=== PATIENT | female | born 1995 | race Two or more races ===

== ENCOUNTER → 2019-10-11 | Outpatient (CLI) | payer OTHER | END | disposition home or self-care (01) | LOC: LAB 10:27 | PROVIDERS: ATTEND Preventive Medicine Preventive Medicine/Occupational Environmental Medicine | DX: Z02.1 Encounter for pre-employment examination (principal) | CPT/HCPCS: 36415; 86706; 86735; 86762; 86765; 86787 ==

== ENCOUNTER → 2020-02-27 | Outpatient (CLI) | payer OTHER | END | disposition home or self-care (01) | LOC: LAB 08:42 | PROVIDERS: ATTEND Nurse Practitioner Family | DX: U07.1 COVID-19 (principal) | CPT/HCPCS: C9803; U0003 ==

== ENCOUNTER 2020-09-06 16:43 | Emergency (ER) | payer MEDICAID, OTHER ==
[~2020-09-06] VITALS: Ht 154.9 cm; Wt 72.6 kg
[2020-09-06 19:01] LABS: Basophils # (auto) 0.1 10 ^3/uL (0-0.2); Basophils % (auto) 0.5 % (0.0-2.0); Eosinophils # (auto) 0 10 ^3/uL (0-0.8); Eosinophils % (auto) 0.4 % (0.0-7.0); Hemoglobin 13.7 g/dL (12.2-16.2); Lymphocytes # (auto) 1.6 10 ^3/uL (0.4-5.4); Lymphocytes % (auto) 14.1 % (10.0-50.0); Mean Corpuscular Hemoglobin 29.3 pg (28.0-32.0); Mean Corpuscular Hgb Conc. 34.2 g/dL (32.0-36.0); Mean Corpuscular Volume 85.7 fL (80.0-100.0); Monocytes # (auto) 0.6 10 ^3/uL (0-1.3); Monocytes % (auto) 5.5 % (0.0-12.0); Neutrophils % (auto) 79.5 % (37.0-80.0); Red Blood Cells 4.67 10^6/uL (4.0-5.20); Red Cell Distribution Width 14.4 % (11.8-14.3); White Blood Cell 11.3 10^3/uL (4.4-10.8)
[2020-09-06 19:17] LABS: Albumin 4.3 g/dL (3.4-5.0); BUN/Creatinine Ratio 14.3; Potassium 3.7 mmol/L (3.5-5.1)
[2020-09-06 19:19] LABS: Bilirubin, Total 0.6 mg/dL (0.2-1.0); Total Protein 8.6 g/dL (6.4-8.2)
[2020-09-06] MEDS ORDERED: ONDANSETRON HCL 4 MG/2 ML VIAL IV ONE (20:15)
[2020-09-06] MEDS ORDERED: SODIUM CHLORIDE 0.9% 1,000 ML IV ONE ×2 (20:15→22:45)
[2020-09-06 21:50] LABS: Lipase 98 U/L (73-393)
[2020-09-06 21:56] LABS: Creatine Kinase IFCC 43 U/L (26-192)
[2020-09-06 22:21] LABS: Urine Amorphous Crystal MOD /hpf (None Seen); Urine Bacteria NONE SEEN /hpf (None Seen); Urine Blood Negative /uL (Negative); Urine Mucus FEW (None Seen); Urine Specific Gravity 1.028 (1.001-1.035); Urine WBC 4 /hpf (0 - 5)
[2020-09-07 03:02] VITALS: BP 114/81
== END 2020-09-07 03:04 | disposition home or self-care (01) ==
LOC: ER 16:43
DX: O21.0 Mild hyperemesis gravidarum (principal); N39.0 Urinary tract infection, site not specified; R42 Dizziness and giddiness; G43.909 Migraine, unspecified, not intractable, without status migrainosus; Z3A.00 Weeks of gestation of pregnancy not specified
CPT/HCPCS: 36415; 76705; 80053; 81001; 82550; 83605; 83690; 84702; 85025; 85049; 96361; 96374; 99285; J2405; J7030

== ENCOUNTER 2020-09-19 12:27 | Emergency (ER) | payer MEDICAID ==
[~2020-09-19] VITALS: Ht 154.9 cm; Wt 68.0 kg
[2020-09-19 13:44] LABS: Basophils # (auto) 0 10 ^3/uL (0-0.2); Basophils % (auto) 0.3 % (0.0-2.0); Eosinophils # (auto) 0 10 ^3/uL (0-0.8); Eosinophils % (auto) 0.3 % (0.0-7.0); Hematocrit 40.5 % (36.0-46.0); Hemoglobin 13.8 g/dL (12.2-16.2); Lymphocytes # (auto) 1.5 10 ^3/uL (0.4-5.4); Lymphocytes % (auto) 17.8 % (10.0-50.0); Mean Corpuscular Hemoglobin 28.9 pg (28.0-32.0); Mean Corpuscular Volume 84.9 fL (80.0-100.0); Monocytes # (auto) 0.6 10 ^3/uL (0-1.3); Monocytes % (auto) 6.9 % (0.0-12.0); Neutrophils # (auto) 6.5 10 ^3/uL (1.6-8.6); Neutrophils % (auto) 74.7 % (37.0-80.0); Nucleated Red Blood Cells % 0.1 %; Red Blood Cells 4.77 10^6/uL (4.0-5.20); Red Cell Distribution Width 14.3 % (11.8-14.3); White Blood Cell 8.7 10^3/uL (4.4-10.8)
[2020-09-19 13:55] LABS: Calcium 9.4 mg/dL (8.5-10.1); Potassium 3.5 mmol/L (3.5-5.1)
[2020-09-19 13:58] LABS: BUN/Creatinine Ratio 9.5
[2020-09-19 14:01] LABS: Bilirubin, Total 0.4 mg/dL (0.2-1.0); Total Protein 7.9 g/dL (6.4-8.2)
[2020-09-19] MEDS ORDERED: ONDANSETRON HCL 4 MG/2 ML VIAL IV ONE (14:15)
[2020-09-19] MEDS ORDERED: SODIUM CHLORIDE 0.9% 1,000 ML IV ONE (14:15)
[2020-09-19 14:18] VITALS: BP 128/98
== END 2020-09-19 16:06 | disposition home or self-care (01) ==
LOC: ER 12:27
DX: O21.0 Mild hyperemesis gravidarum (principal); Z3A.10 10 weeks gestation of pregnancy
CPT/HCPCS: 36415; 76801; 80053; 84702; 85025; 96361; 96374; 99284; J2405; J7030

== ENCOUNTER 2020-09-29 19:29 | Emergency (ER) | payer MEDICAID ==
[~2020-09-29] VITALS: Ht 157.5 cm; Wt 68.0 kg
[2020-09-29] MEDS ORDERED: ONDANSETRON HCL 4 MG/2 ML VIAL IV ONE (19:45)
[2020-09-29] MEDS ORDERED: SODIUM CHLORIDE 0.9% 1,000 ML IV ONE (19:45)
[2020-09-29 19:58] LABS: Basophils # (auto) 0 10 ^3/uL (0-0.2); Basophils % (auto) 0.5 % (0.0-2.0); Eosinophils # (auto) 0 10 ^3/uL (0-0.8); Eosinophils % (auto) 0.2 % (0.0-7.0); Hematocrit 40.1 % (36.0-46.0); Hemoglobin 13.8 g/dL (12.2-16.2); Lymphocytes # (auto) 1.6 10 ^3/uL (0.4-5.4); Lymphocytes % (auto) 18.2 % (10.0-50.0); Mean Corpuscular Hemoglobin 29.3 pg (28.0-32.0); Mean Corpuscular Hgb Conc. 34.4 g/dL (32.0-36.0); Mean Corpuscular Volume 85.3 fL (80.0-100.0); Monocytes # (auto) 0.5 10 ^3/uL (0-1.3); Monocytes % (auto) 5.6 % (0.0-12.0); Neutrophils # (auto) 6.6 10 ^3/uL (1.6-8.6); Neutrophils % (auto) 75.5 % (37.0-80.0); Nucleated Red Blood Cells % 0.1 %; Red Blood Cells 4.71 10^6/uL (4.0-5.20); Red Cell Distribution Width 14.2 % (11.8-14.3); White Blood Cell 8.7 10^3/uL (4.4-10.8)
[2020-09-29 20:19] LABS: Calcium 9.5 mg/dL (8.5-10.1); Potassium 3.7 mmol/L (3.5-5.1)
[2020-09-29 20:21] LABS: Bilirubin, Total 0.4 mg/dL (0.2-1.0); Total Protein 7.9 g/dL (6.4-8.2)
[2020-09-30 00:15] VITALS: BP 121/80
[2020-09-30 00:20] LABS: Urine Bacteria NONE SEEN /hpf (None Seen); Urine Blood Negative /uL (Negative); Urine Mucus FEW (None Seen); Urine Specific Gravity 1.027 (1.001-1.035); Urine WBC 8 /hpf (0 - 5)
== END 2020-09-30 00:33 | disposition home or self-care (01) ==
LOC: ER 19:32
DX: O21.0 Mild hyperemesis gravidarum (principal); Z3A.11 11 weeks gestation of pregnancy
CPT/HCPCS: 36415; 80053; 81001; 84702; 85025; 96361; 96374; 99283; J2405; J7030

== ENCOUNTER 2020-12-08 11:29 | Emergency (ER) | payer MEDICAID ==
[~2020-12-08] VITALS: Ht 154.9 cm; Wt 65.3 kg
[2020-12-08 11:43] VITALS: BP 138/87
== END 2020-12-08 12:23 | disposition home or self-care (01) ==
LOC: EEVIPCON 11:29 → ER 11:29
DX: H61.22 Impacted cerumen, left ear (principal)
CPT/HCPCS: 69209

== ENCOUNTER 2024-02-15 19:37 | Emergency (ER) | payer MEDICAID ==
[~2024-02-15] VITALS: Ht 167.6 cm; Wt 76.9 kg
[2024-02-15 19:55] VITALS: BP 124/94; PULSE 109; RESP 18
--- NOTE | 2024-02-15 20:24 | ED.PDOC ---
SOB-HPI HPI Comments This is a 28-year-old female presents to the ED chief complaint flu-like s ymptoms x1 day. Patient reports recent exposure to coworkers positive with COVID-19. She states over the past 24 hours she has developed fevers, headache, lost of taste and smell. She states has been taking [id number] Tylenol or Motrin as needed with relief. She denies difficulty breathing, shortness of breath, nausea, vomiting, abdominal pain, or diarrhea. Chief Complaint: Flu like Time Seen by MD: 19:52 Reviewed notes: Nurses Notes, Medications, Allergies Information Source: Patient Mode of Arrival: Ambulatory Past Medical History PAST MEDICAL HISTORY: Denies Surgical History: Denies all surgeries CLINIC ADMINISTRATOR History: No Pertinent CLINIC ADMINISTRATOR History Family History Family History: Reviewed,noncontributory to illness Social History Smoker: Non-Smoker Alcohol: Denies ETOH Use Drugs: Denies Drug Use Lives In: Home Constitutional: reports: fever; denies: chills, diaphoresis, fatigue, malaise, sweats, weakness, others EENTM: reports: throat pain, others (Lost of taste and smell); denies: blurred vision, double vision, ear bleeding, ear discharge, ear drainage, ear pain, ear ringing, eye pain, eye redness, hearing loss, mouth pain, mouth swelling, nasal discharge, nose bleeding, nose congestion, nose pain, photophobia, tearing, throat swelling, voice changes Respiratory: reports: cough; denies: hemoptysis, orthopnea, SOB at rest, shortness of breath, SOB with excertion, stridor, wheezing, others Cardiovascular: denies: chest pain, dizzy spells, diaphoresis, Dyspnea on exertion, edema, irregular heart beat, left arm pain, lightheadedness, palpitations, PND, syncope, others Gastrointestinal: denies: abdomen distended, abdominal pain, blood streaked bowels, constipated, diarrhea, dysphagia, difficulty swallowing, hematemesis, melena, nausea, poor appetite, poor fluid intake, rectal bleeding, rectal pain, vomiting, others Genitourinary: denies: abnormal vagina bleeding, burning, dyspareunia, dysuria, flank pain, frequency, hematuria, incontinence, pain, , vagina discharge, urgency, others Neurological: denies: dizziness, fainting, headache, left sided numbness, left sided weakness, numbness, paresthesia, pre-existing deficit, right sided numbness, right sided weakness, seizure, speech problems, tingling, tremors, weakness, others Musculoskeletal: denies: back pain, gout, joint pain, joint swelling, muscle pain, muscle stiffness, neck pain, others Integumetry: denies: bruises, change in color, change in hair/nails, dryness, laceration, lesions, lumps, rash, wounds, others Allergic/Immunocompromised: denies: Difficulty Healing, Frequent Infections, Hives, Itching, others Hematologic/Lymphatic: denies: anemia, blood clots, easy bleeding, easy bruising, swollen glands, others Endocrine: denies: excessive hunger, excessive sweating, excessive thirst, excessive urination, flushing, intolerance to cold, intolerance to heat, unexplained weight gain, unexplained weight loss, others Psychiatric: denies: anxiety, bipolar disorder, depression, hopeless, panic disorder, schizophrenia, sleepless, suicidal, others Physical Exam General Appearance: No Apparent Distress, Normal HEENT: Pharyngeal Erythema, TMs Normal Neck: Full Range of Motion, Non-Tender, Normal, Normal Inspection Respiratory: Lungs Clear, No Respiratory Distress, Normal Breath Sounds Cardiovascular: No Edema, No JVD, No Murmur, No Gallop, Normal Peripheral Pulses, Regular Rate/Rhythm Breast Exam: Deferred Gastrointestinal: No Organomegaly, Non Tender, No Pulsatile Mass, Normal Bowel Sounds, Soft Genitalia: Deferred Pelvic: Deferred Rectal: Deferred Extremities: Normal capillary refill, Normal inspection, Normal range of motion, Non-tender, No pedal edema Musculoskeletal : Apperance: Normal Neurologic: Alert, side stapler II-XII nml as Tested, No Motor Deficits, Normal Affect, Normal Mood, No Sensory Deficits Cerebellar Function: Normal Reflexes: Normal Skin: Dry, Normal Color, Warm Lymphatic: No Adenopathy Was a procedure done? Was a procedure done?: No Differential Dx Differential Diagnosis: Bronchitis, Pneumonia X-Ray, Labs, Meds, VS Vital Signs Date Time Temp Pulse Resp B/P (MAP) Pulse Ox O2 Delivery O2 Flow Rate FiO2 02/15/24 19:55 100.0 109 18 124/94 (104) 98 Lab Test 02/15/24 19:56 Range/Units Influenza Type A Antigen Positive Negative Influenza Type B Antigen Negative Negative SARS-CoV-2 Antigen (Rapid) Negative NEGATIVE X-Ray, Labs, Meds, VS Comment Patient given ibuprofen 800 mg for low-grade fever. COVID swab negative Influenza a positive Positive influenza a trial Tamiflu times daily x5 days. Advised to rest increase p.o. fluids with electrolytes [id number] Tylenol or Motrin as needed for pain or fever. Follow up PCP in 2-3 days as necessary. ER return precautions given patient indicated understanding agrees with discharge plan of care. Time of 1ST Reevaluation: 21:06 Reevaluation 1ST: Improved Patient Education/Counseling: Diagnosis, Treatment, Prognosis, Need For Follow Up Family Education/Counseling: Diagnosis, Treatment, Prognosis, Need For Follow Up Departure 1 Departure Time of Disposition: 21:06 Impression: Primary Impression: Influenza A Disposition: 01 HOME / SELF CARE / HOMELESS Condition: Stable e-Prescriptions Oseltamivir Phosphate (Tamiflu) 75 Mg Cap 1 CAP PO BID for 5 Days, #10 CAP Prov: GRACE BARNEY 02/15/24 Discharged With: Spouse Critical Care Note Critical Care Time?: No Stability Stability form required: No Heart Score Heart Score: Heart Score Response (Comments) Value History N/A 0 EKG N/A 0 Age <45 0 Risk Factors N/A 0 Troponin N/A 0 Total 0 GRACE BARNEY Feb 15, 2024 20:24
[2024-02-15 20:58] LABS: Rapid Influenza B Negative (Negative)
[2024-02-15 20:59] LABS: COVID19 ANTIGEN SOFIA FIA NEGATIVE (NEGATIVE); Rapid Influenza A Positive (Negative)
[2024-02-15] MEDS ORDERED: OSEL75CA5 PO (21:09)
[2024-02-15] MEDS: IBUPROFEN 800 MG TAB PO ONE (21:13)
[2024-02-15] MEDS ORDERED: LOSA-533 PO (21:14)
[2024-02-15 22:13] VITALS: O2SAT 98
== END 2024-02-15 22:22 | disposition home or self-care (01) ==
LOC: EEVIPCON 19:37 → ER 19:37
DX: J10.1 Influenza due to other identified influenza virus with other respiratory manifestations (principal); Z20.822 Contact with and (suspected) exposure to COVID-19
CPT/HCPCS: 36415; 87426; 87804

== ENCOUNTER 2024-07-23 00:53 | Inpatient (IN) | payer MEDICAID ==
[~2024-07-23] VITALS: Ht 170.2 cm; Wt 8.0 kg
[2024-07-23] MEDS: IOHEXOL 300 MG/ML 100ML BOTTLE IJ ONE (01:13)
--- NOTE | 2024-07-23 01:26 | ED.PDOC ---
History of Present Illness HPI Comments 28 y/o F presents with 3x day history of left-upper and lower quadrant abdominal pain, with associated nausea and vomiting. Patient endorses on pain beginning gradually and unprovoked. She states on pain starting in her LUQ and radiating to her LLQ and describes her vomitus as watery-brown in appearance. She states on no relief or improvement with [id number] Ibuprofen or Tylenol use. Patient endorses on current -control implant in her left-arm and having no other significant past medical, surgical, or social history. She denies any recent travel, injuries, or known sick contact,spoiled food indigestion or substance exposure. Patient denies having any bloody vomitus, diarrhea, constipation, urinary symptoms, fever, chills, or further associated symptoms. Chief Complaint: Abdominal Pain Time Seen by MD: 01:00 Reviewed Notes: Nurses Notes, Medications, Allergies Allergies: Coded Allergies: No Known Drug Allergy (Verified Allergy, Unknown, 09/06/20) Information Source: Patient Mode of Arrival: Ambulatory Severity: Moderate Timing: Days Duration: Since onset Prehospital treatment: Pain Meds Past Medical History PAST MEDICAL HISTORY: Denies Surgical History (Other): -control implant in her left-arm. [employer] History: No Pertinent [employer] History Family History Family History: Reviewed,noncontributory to illness Social History Smoker: Non-Smoker Alcohol: Denies ETOH Use Drugs: Denies Drug Use Lives In: Home All Other Systems: Reviewed and Negative (Comprehensive systems review obtained and negative except for what is stated in the HPI.) Physical Exam General Appearance: No Apparent Distress, Normal HEENT: Normal ENT Inspection, Pharynx Normal, TMs Normal Neck: Full Range of Motion, Non-Tender, Normal, Normal Inspection Respiratory: Chest Non-Tender, Lungs Clear, No Accessory Muscle Use, No Respiratory Distress, Normal Breath Sounds Cardiovascular: No Edema, No JVD, No Murmur, No Gallop, Normal Peripheral Pulses, Regular Rate/Rhythm Breast Exam: Deferred Gastrointestinal: No Organomegaly, Non Tender, No Pulsatile Mass, Normal Bowel Sounds, Soft Genitalia: Deferred Pelvic: Deferred Rectal: Deferred Extremities: No calf tenderness, Normal capillary refill, Normal inspection, Normal range of motion, Non-tender, No pedal edema Musculoskeletal : Apperance: Normal Neurologic: Alert, realtime court reporter II-XII nml as Tested, No Motor Deficits, Normal Affect, Normal Mood, No Sensory Deficits Cerebellar Function: Normal Reflexes: Normal Skin: Dry, Normal Color, Warm Lymphatic: No Adenopathy Was a procedure done? Was a procedure done?: No Differential Dx Considerations may include: gastritis, gastroenteritis, GERD, PUD, splenic abscess/rupture, cholecystitis, cholelithiasis, nephrolithiasis, cystitis, , among others X-Ray, Labs, Meds, VS Vital Signs Date Time Temp Pulse Resp B/P (MAP) Pulse Ox O2 Delivery O2 Flow Rate FiO2 07/23/24 02:17 99 22 152/99 07/23/24 00:59 98.9 100 18 150/98 (115) 100 98.9 Lab Test 07/23/24 01:42 07/23/24 01:12 Range/Units Urine Color Light-orange Yellow Urine Clarity Clear Clear Urine pH 6.0 5.0-9.0 Urine Specific [facility] 1.047 H 1.001-1.035 Urine Protein 1+ H Negative Urine Ketones 4+ H Negative Urine Blood 3+ H Negative /uL Urine Nitrite Negative Negative Urine Bilirubin Negative Negative Urine Urobilinogen Normal Negative mg/dL Urine Leukocyte Esterase 1+ Negative /uL Urine RBC 16 0 - 4 /hpf Urine Microscopic WBC 26 H 0-5 /HPF Urine Squamous Epithelial Cells Few <5 /hpf Urine Bacteria Few H None Seen /hpf Urine Mucus Few None Seen Urine Glucose Trace Normal mg/dL White Blood Count 14.8 H 4.4-10.8 10^3/uL Red Blood Count 5.09 4.0-5.20 10^6/uL Hemoglobin 14.1 12.2-16.2 g/dL Hematocrit 43.5 36.0-46.0 % Mean Corpuscular Volume 85.4 80.0-100.0 fL Mean Corpuscular Hemoglobin 27.8 L 28.0-32.0 pg Mean Corpuscular Hemoglobin Concent 32.5 32.0-36.0 g/dL Red Cell Distribution Width 13.8 11.8-14.3 % Platelet Count 332 140-450 10^3/uL Mean Platelet Volume 9.3 6.9-10.8 fL Neutrophils (%) (Auto) 83.5 H 37.0-80.0 % Lymphocytes (%) (Auto) 11.5 10.0-50.0 % Monocytes (%) (Auto) 4.7 0.0-12.0 % Eosinophils (%) (Auto) 0.0 0.0-7.0 % Basophils (%) (Auto) 0.3 0.0-2.0 % Neutrophils # (Auto) 12.4 H 1.6-8.6 10 ^3/uL Lymphocytes # (Auto) 1.7 0.4-5.4 10 ^3/uL Monocytes # (Auto) 0.7 0-1.3 10 ^3/uL Eosinophils # (Auto) 0 0-0.8 10 ^3/uL Basophils # (Auto) 0 0-0.2 10 ^3/uL Nucleated Red Blood Cells 0.0 % Sodium Level 136 136-145 mmol/L Potassium Level 3.4 L 3.5-5.1 mmol/L Chloride Level 101 98-107 mmol/L Carbon Dioxide Level 23 20-31 mmol/L Anion Gap 12 5-15 Blood Urea Nitrogen 7 L 9-23 mg/dL Creatinine 0.63 0.550-1.02 mg/dL Glomerular Filtration Rate Calc 125 >90 mL/min BUN/Creatinine Ratio 11.1 10.0-20.0 Serum Glucose 116 H 74-106 mg/dL Calcium Level 9.8 8.7-10.4 mg/dL Current Medications Medications (Trade) Dose Ordered Sig/Roshni Route Start Time Stop Time Status Last Admin Sodium Chloride 1,000 ml @ 1,000 mls/hr Q1H ONCE IV 07/23/24 01:15 07/23/24 02:14 DC 07/23/24 02:15 Ondansetron HCl (Zofran) 4 mg ONCE ONCE IV 07/23/24 01:15 07/23/24 01:16 DC 07/23/24 02:16 Morphine Sulfate 4 mg ONCE ONCE IV 07/23/24 01:15 07/23/24 01:16 DC 07/23/24 02:17 Time of 1ST Reevaluation: 01:30 Reevaluation 1ST: Unchanged Patient Education/Counseling: Diagnosis, Treatment, Need For Follow Up Family Education/Counseling: No Family Present Departure 1 Departure Time of Disposition: 03:12 (Patient presented with abdominal pain that was concerning for possible appendicits, gastritis, cholecystitis, colitis, gastroenteritis, sbo, or orther possible surgical emergency. Data: 1. I ordered and reviewed the result of at least 3 labs including a CBC, BMP, and Urinalysis. 2. I independently interpreted the following tests: CT Abdoment and Pelvis is concerning for acute appendicitis .Risk:This patient has a high risk of morbidity due to further diagnostic testing or treatment and may suffer from an acute abdominal process disorder. Workup reveals concern for acute appendicitis and patient should be admitted for further workup. and possible expert consultation. ) Impression: Primary Impression: Acute appendicitis Qualified Codes: K35.32 - Acute appendicitis with perforation, localized peritonitis, and gangrene, without abscess Additional Impression: Intractable abdominal pain Disposition: ADMITTED INPATIENT Admit to: Med Surg Condition: Guarded Critical Care Note Critical Care Time?: Yes Critical care comment: Intractable abdominal pain Authorized and Performed by: Shelbie Sanchez MD Total critical care time: [id number] minutes Due to a high probability of clinically significant, life threatening deterioration, the patient required my highest level of preparedness to intervene emergently and I personally spent this critical care time directly and personally managing the patient. This critical care time included obtaining a history; examining the patient; pulse oximetry; ordering and review of studies; arranging urgent treatment with development of a management plan; evaluation of patient's response to treatment; frequent reassessment; and, discussions with ot her providers. This critical care time was performed to assess and manage the high probability of imminent, life-threatening deterioration that could result in multi-organ failure. It was exclusive of separately billable procedures and treating other patients and teaching time. Please see my other sections and the rest of the note for further information on patient assessment and treatment. Stability Stability form required: No Heart Score Heart Score: Heart Score Response (Comments) Value History N/A 0 EKG N/A 0 Age N/A 0 Risk Factors N/A 0 Troponin N/A 0 Total 0 I personally scribed for SHELBIE SANCHEZ MD ([email or web address]) on 07/23/24 at 01:26. Electronically submitted by Mateusz Liu ([email or web address]). I personally scribed for SHELBIE SANCHEZ MD ([email or web address]) on 07/23/24 at 01:38. Electronically submitted by Mateusz Liu ([email or web address]). SHELBIE SANCHEZ MD July 23, 2024 01:26
[2024-07-23 01:29] LABS: Basophils # (auto) 0 10 ^3/uL (0-0.2); Basophils % (auto) 0.3 % (0.0-2.0); Eosinophils # (auto) 0 10 ^3/uL (0-0.8); Hematocrit 43.5 % (36.0-46.0); Hemoglobin 14.1 g/dL (12.2-16.2); Lymphocytes # (auto) 1.7 10 ^3/uL (0.4-5.4); Lymphocytes % (auto) 11.5 % (10.0-50.0); Mean Corpuscular Hemoglobin 27.8 pg (28.0-32.0); Mean Corpuscular Hgb Conc. 32.5 g/dL (32.0-36.0); Mean Corpuscular Volume 85.4 fL (80.0-100.0); Monocytes # (auto) 0.7 10 ^3/uL (0-1.3); Monocytes % (auto) 4.7 % (0.0-12.0); Neutrophils # (auto) 12.4 10 ^3/uL (1.6-8.6); Neutrophils % (auto) 83.5 % (37.0-80.0); Platelet Count (auto) 332 10^3/uL (140-450); Red Blood Cells 5.09 10^6/uL (4.0-5.20); Red Cell Distribution Width 13.8 % (11.8-14.3); White Blood Cell 14.8 10^3/uL (4.4-10.8)
[2024-07-23 01:36] LABS: Chloride 101 mmol/L (98-107); Sodium 136 mmol/L (136-145)
[2024-07-23 01:37] LABS: Anion Gap 12 (5-15); Carbon Dioxide 23 mmol/L (20-31)
[2024-07-23 01:38] LABS: Calcium 9.8 mg/dL (8.7-10.4)
[2024-07-23 01:40] LABS: Potassium 3.4 mmol/L (3.5-5.1)
[2024-07-23 01:42] LABS: BUN/Creatinine Ratio 11.1 (10.0-20.0)
[2024-07-23 01:48] LABS: Blood Urea Nitrogen 7 mg/dL (9-23); Glucose 116 mg/dL (74-106)
[2024-07-23 01:56] LABS: Urine Bacteria FEW /hpf (None Seen); Urine Blood 3+ /uL (Negative); Urine Clarity Clear (Clear); Urine Color Light-Orange (Yellow); Urine Mucus FEW (None Seen); Urine Protein, UAD 1+ (Negative); Urine Specific Gravity 1.047 (1.001-1.035); Urine Squamous Epithelial Cell FEW /hpf (<5); Urine Urobilinogen Normal (Negative); Urine WBC 26 /HPF (0-5)
[2024-07-23] MEDS: SODIUM CHLORIDE 0.9% 1,000 ML IV ONE ×2 (02:15→05:16)
[2024-07-23] MEDS: ONDANSETRON HCL 4 MG/2 ML VIAL IV ONE ×2 (02:16→05:03)
[2024-07-23] MEDS: MORPHINE SULFATE 4 MG/ML SYR/VIAL IV ONE ×2 (02:17→05:04)
--- NOTE | 2024-07-23 03:04 | DVH ---
Critical finding: Examination: ABPLIV CLINICAL INDICATION: ;LLQ abdominal pain COMPARISON: None. CONTRAST USED: Intravenous. TECHNIQUE: A post contrast CT study of the abdomen and pelvis is performed. The examination was perf ormed with [address] scan done according to ALARA (As Low as Reasonably Achievable). Mul tiplanar reconstructions were obtained. FINDINGS: CT ABDOMEN: Visualized lower thorax: The evaluation of lung bases demonstrates no focal infiltrates or pleural e ffusion. Liver: The liver is normal in size. The portal venous radicles are normal. There is no intrahepatic b iliary radicle dilatation. Gallbladder: The gallbladder is normal and reveals no intrinsic abnormality. The common bile duct is not dilated. Pancreas: The pancreas is normal in size and shape. No focal lesion is seen within. The peripancreati c fat planes are normal. Spleen: The spleen is normal in size and does not show any focal abnormality. Retroperitoneum: Both adrenal glands are normal in size and morphology. There is no significant retr operitoneal lymphadenopathy. The kidneys are normal in size with no hydronephrosis or renal calculi. Vessels: The aorta, IVC and mesenteric vessels appear unremarkable. Stomach and bowel: The bowel loops are unremarkable. There is no ascites. Skeletal system: The visualized thoracolumbar vertebrae and the pelvic bones are unremarkable. CT PELVIS: Appendix: Fluid-filled, thick-walled (diameter up to approximately 11.5 mm) appendix noted in the ri ght iliac fossa with discontinuity in its wall near its tip and heterogenous density, predominantly h ypodense area/collection of approximate size 1.7 x 1.8 x 2 cm near the tip of appendix, suggestive of acute appendicitis with probable perforation and collection near its tip. Mesenteric fat stranding and few soft tissue density subcentimetric mesenteric lymph nodes in the rig ht iliac fossa. Colon: The ascending, transverse, descending, sigmoid colon and rectum are unremarkable. Urinary bladder: The urinary bladder is unremarkable. Pelvic organs: The uterus is normal for age. Well-defined hypodense cystic lesion of approximate siz e 3.4 x 4.8 x 3.6 cm in the right ovary, suggestive of simple cyst. No evidence of enhancing internal septations or any fat density or calcifications. Follicular cysts noted in the left ovary. No left a dnexal mass. No significant pelvic lymphadenopathy is identified. No abnormal fluid collection is see n. IMPRESSION: 1. Acute appendicitis with probable perforation and collection near its tip. 2. Mesenteric fat stranding and few soft tissue density subcentimetric mesenteric lymph nodes in the right iliac fossa. 3. Simple right ovarian cyst. 4. No abdominal mass. 5. No ascites. 6. No free air. 7. Chronic and/or ancillary findings as described above. Electronically Signed 07/23/2024 03:02 Yuly Marion
[2024-07-23] MEDS: PIPERACILLIN-TAZO 4.5GM 100 ML IV ONE (04:15)
--- NOTE | 2024-07-23 06:00 | DVHHP2 ---
History of Present Illness History of Present Illness Patient is 28 years old female with a past medical history of iron-deficiency anemia on iron pill came with a complaint of abdominal pain. As per patient she has been abdominal pain for last 3 days, started gradually, restarted on the left upper quadrant, then radiating to the left lower quadrant and all over the places, continuous, sharp in nature, 10/10 in severity, aggravated with movement or coughing or bending, relieved with some pain medication. Patient also endorsed nausea and vomited was, no blood. Patient Also reported having diarrhea yesterday 4 times, no blood. Patient did not any fever, any dysuria, chest pain no shortness a breath acute joint pain or swelling. Initial lab workup revealed leukocytosis WBC 14.8, mild hypokalemia with a potassium 3.4, urinalysis revealed leukocyte esterase 1+, WBC 26, bacteria few. CT abdomen revealed - Acute appendicitis with probable perforation and collection near its tip. Mesenteric fat stranding and few soft tissue density subcentimetric mesenteric lymph nodes in the right iliac fossa. Simple right ovarian cyst. Past Medical History Iron-deficiency anemia Past Surgical History None Past Social History Lives with family, denies smoking/alcoholism/drug abuse Review of Systems Review of Systems Allergy- NKDA Patient was seen today at the bedside. Cardiovascular- deny acute chest pain or shortness of breath or cough or palpitation Respiratory denies cough or short of breath or wheezing Musculoskeletal-denies acute joint swelling or tenderness or redness Neurological- denies acute dysarthria, dysphagia, change in vision Psychiatry- denies depression or SI or HI Skin- denies acute rash or purpura Allergies: Coded Allergies: No Known Drug Allergy (Verified Allergy, Unknown, 09/06/20) Medications Current Medications Medications Dose Ordered Sig/Roshni Route Start Time Stop Time Status Last Admin Dose Admin Sodium Chloride 1,000 ml @ 120 mls/hr Q8H20M IV 07/23/24 05:45 Morphine Sulfate 1 mg Q4HP PRN IV 07/23/24 05:45 Ondansetron HCl 4 mg Q6HPRN PRN IV 07/23/24 05:45 Ceftriaxone Sodium 50 ml @ 100 mls/hr DAILY@09 IV 07/24/24 09:00 Metronidazole 100 ml @ 100 mls/hr Q8HR IV 07/23/24 14:00 Pantoprazole Sodium 40 mg DAILY IV 07/23/24 10:00 Exam Vital Signs Vital Signs Date Time Temp Pulse Resp B/P (MAP) Pulse Ox O2 Delivery O2 Flow Rate FiO2 07/23/24 05:04 85 23 128/80 07/23/24 00:59 98.9 100 98.9 Exam General examination- awake, alert, oriented HEENT- PEERLA, no acute nasal discharge Cardiovascular- S1-S2 audible, rate and rhythm regular, no murmur Respiratory- CTAB, no wheeze or rhonchi Gastrointestinal-McBurney's point tenderness positive++, bowel sound+. Nondistended Musculoskeletal-no acute joint swelling or tenderness or redness Lower extremity- no leg edema Neurological- cranial nerves intact, no acute dysarthria or dysphagia Psychiatry- denies depression or SI or HI Skin- no acute rash or purpura Labs/Xrays Labs Test 07/23/24 03:31 07/23/24 02:00 07/23/24 01:42 07/23/24 01:12 Range/Units Lactic Acid Level 1.7 0.4-2.0 mmol/L Urine Color Light-orange Yellow Urine Clarity Clear Clear Urine pH 6.0 5.0-9.0 Urine Specific [place] 1.047 H 1.001-1.035 Urine Protein 1+ H Negative Urine Ketones 4+ H Negative Urine Blood 3+ H Negative /uL Urine Nitrite Negative Negative Urine Bilirubin Negative Negative Urine Urobilinogen Normal Negative mg/dL Urine Leukocyte Esterase 1+ Negative /uL Urine RBC 16 0 - 4 /hpf Urine Microscopic WBC 26 H 0-5 /HPF Urine Squamous Epithelial Cells Few <5 /hpf Urine Bacteria Few H None Seen /hpf Urine Mucus Few None Seen Urine Glucose Trace Normal mg/dL White Blood Count 14.8 H 4.4-10.8 10^3/uL Red Blood Count 5.09 4.0-5.20 10^6/uL Hemoglobin 14.1 12.2-16.2 g/dL Hematocrit 43.5 36.0-46.0 % Mean Corpuscular Volume 85.4 80.0-100.0 fL Mean Corpuscular Hemoglobin 27.8 L 28.0-32.0 pg Mean Corpuscular Hemoglobin Concent 32.5 32.0-36.0 g/dL Red Cell Distribution Width 13.8 11.8-14.3 % Platelet Count 332 140-450 10^3/uL Mean Platelet Volume 9.3 6.9-10.8 fL Neutrophils (%) (Auto) 83.5 H 37.0-80.0 % Lymphocytes (%) (Auto) 11.5 10.0-50.0 % Monocytes (%) (Auto) 4.7 0.0-12.0 % Eosinophils (%) (Auto) 0.0 0.0-7.0 % Basophils (%) (Auto) 0.3 0.0-2.0 % Neutrophils # (Auto) 12.4 H 1.6-8.6 10 ^3/uL Lymphocytes # (Auto) 1.7 0.4-5.4 10 ^3/uL Monocytes # (Auto) 0.7 0-1.3 10 ^3/uL Eosinophils # (Auto) 0 0-0.8 10 ^3/uL Basophils # (Auto) 0 0-0.2 10 ^3/uL Nucleated Red Blood Cells 0.0 % Assessment/Plan Assessment/Plan Assessment and plan-called Dr. Pelletier-[phone], and left a voice message, I also texted him regarding the patient. Later on I called again and talked to Dr. Pelletier and informed him about this patient Acute appendicitis with suspected perforation Intractable nausea and vomiting and abdominal pain likely due to acute appendicitis Sepsis Leukocytosis likely due to appendicitis UTI Iron-deficiency anemia Simple right ovarian cyst Mild hypokalemia WBC 14.8, mild hypokalemia with a potassium 3.4, urinalysis revealed leukocyte esterase 1+, WBC 26, bacteria few. CT abdomen revealed - Acute appendicitis with probable perforation and collection near its tip. Mesenteric fat stranding and few soft tissue density subcentimetric mesenteric lymph nodes in the right iliac fossa. Simple right ovarian cyst. Plan NPO Ordered surgery consult Ordered ceftriaxone and metronidazole Ordered IV normal saline Ordered pantoprazole Ordered blood culture, urine culture Ordered EKG, PT INR, PT APTT, Goals of care, Code status ; discussed with >15 minutes PUD prophylaxis: Pantoprazole DVT prophylaxis: SCD Plan discussed with Dr. Wolf , nursing staff, Total time spent on patient evaluation, chart review, assessment and plan, discussion discussion >35 minutes Plan discussed with: Patient, Spouse, Other (RN) My Orders Orders - QUENTIN HOLLAND RESIDENT Procedure Category Date Status Time Admit ADMIT 07/23/24 Transmitted 05:35 Code Status CODE 07/23/24 Transmitted 05:35 Sodium Chloride 0.9% PHA 07/23/24 In Process 05:45 Complete Blood Count LAB 07/24/24 Verified 04:00 Comprehensive LAB 07/24/24 Verified Metabolic Panel 04:00 Npo (Nothing By DIET 07/23/24 Transmitted Mouth) Diet Breakfast Notify Of Changes DARREN 07/23/24 In Process From Base 05:35 Buyer Intern For DARREN 07/23/24 In Process 24 Hours 05:35 Morphine Sulfate PHA 07/23/24 In Process Injection 05:45 Ondansetron Hcl PHA 07/23/24 In Process (Zofran) 05:45 Ceftriaxone 1gm/50ml PHA 07/23/24 In Process D5w (Rocephin) 05:45 Metronidazole PHA 07/23/24 In Process 500mg/100ml (Flagyl 14:00 Metronidazole PHA 07/23/24 In Process 500mg/100ml (Flagyl 05:45 Pantoprazole PHA 07/23/24 In Process (Protonix) 10:00 Prothrombin Time W/ LAB 07/23/24 In Process INR 05:38 PTPTT LAB 07/23/24 In Process 05:38 Chest Xray 1 View XY 07/23/24 Logged 05:41 Beta Hcg, Quantitative LAB 07/23/24 In Process 05:41 Comprehensive LAB 07/23/24 In Process Metabolic Panel 05:41 Potassium Chl PHA 07/23/24 In Process 20meq/100ml 05:45 Ceftriaxone 1gm/50ml PHA 07/24/24 In Process D5w (Rocephin) 09:00 Urine Bacterial JOHN 07/23/24 In Process Culture 05:47 Date of Service: July 23, 2024 Billing Provider: FABIOLA WOLF MD Common Visit Codes: 32311-QEOVIRE INP/OBS CARE (HIGH) Secondary Visit Codes: 88640-BULAHWYG CARE PLAN 30 MINUTES QUENTIN HOLLAND RESIDENT July 23, 2024 06:00
--- NOTE | 2024-07-23 06:13 | DVH ---
EXAM: XR Chest, 1 View CLINICAL INDICATION: Rule out perforation of hollow viscus TECHNIQUE: Frontal view of the chest. COMPARISON: None FINDINGS: LUNGS AND PLEURAL SPACES: Unremarkable. No consolidation. No pneumothorax. HEART: Unremarkable. No cardiomegaly. MEDIASTINUM: Unremarkable. Normal mediastinal contour. BONES/JOINTS: Unremarkable. No acute fracture. OTHER FINDINGS: . IMPRESSION: No acute cardiopulmonary process.
[2024-07-23 06:30] LABS: Alkaline Phosphatase 83 U/L (46-116); Total Protein 8.3 g/dL (5.7-8.2)
[2024-07-23 06:31] LABS: Alanine Aminotransferase 10 U/L (7-40); Albumin 5.4 g/dL (3.2-4.8); Aspartate Aminotransferase < 8 U/L (13-40); Bilirubin, Total 0.6 mg/dL (0.2-1.0)
[2024-07-23 06:36] LABS: INR 0.97 (0.9-1.15); Partial Thromboplastin Time 34.8 SEC (24.5-34.5); Prothrombin Time 10.3 sec (9.3-11.8)
[2024-07-23] MEDS: SODIUM CHLORIDE 0.9% 1,000 ML IV SCH (06:50)
[2024-07-23] MEDS: cefTRIAXone 1GM/50ML D5W 50 ML IV ONE (06:59)
[2024-07-23] MEDS: PANTOPRAZOLE 40 MG/10 ML VIAL INJ IV ONE (07:10)
[2024-07-23] MEDS: MORPHINE SULFATE INJ 2 MG/ml SYRG IV ONE (07:11)
[2024-07-23] MEDS: POTASSIUM CHL 20MEQ/100ML 100 ML IV ONE (07:38)
[2024-07-23] MEDS: metroNIDAZOLE 500MG/100ML 100 ML IV ONE (07:39)
--- NOTE | 2024-07-23 08:23 | DVHPNRES ---
Progress Note Date Seen: July 23, 2024 Resident Creating Document: RENETTA ALCANTARMAURICIO RESIDENT Medical Necessity Reason Pt with a Central, PICC or Fol: No Subjective Review of Systems Patient is a 28-year-old female with no significant past medical history presented to the ED with a chief complaint of abdominal pain associated with nausea. Patient reported the pain started about 3 days ago in the left side of her abdomen in the left lumbar and lower quadrant L spread diffusely across the abdomen and at present complains of tenderness and pain in the right lower quadrant, pain is moderate-severe in intensity, constant with intermittent sharp pain, associated with nausea and few episodes of vomiting, yesterday the patient also reported 4 episodes of loose stools. Denied having any fever, chills, dysuria, increased frequency or nocturia. Past medical history: Anemia Past surgical history: None Gynecological history: 2 normal vaginal deliveries Social history: Patient lives with the family and does not drink alcohol, smoke or use any drugs Home medications none Review of systems Patient seen and examined at the bedside Reported of abdominal pain more in the right lower quadrant [id number] with the associated nausea No vomitings, diarrhea, fever, chills Objective vital signs Vital Sign Date Time Temp Pulse Resp B/P (MAP) Pulse Ox O2 Delivery O2 Flow Rate FiO2 07/23/24 07:33 95 18 129/84 (99) 96 07/23/24 00:59 98.9 98.9 medications Current Medications Medications Dose Ordered Sig/Roshni Route Start Time Stop Time Status Last Admin Dose Admin Sodium Chloride 1,000 ml @ 120 mls/hr Q8H20M IV 07/23/24 05:45 07/23/24 06:50 120 MLS/HR Morphine Sulfate 1 mg Q4HP PRN IV 07/23/24 05:45 Ondansetron HCl 4 mg Q6HPRN PRN IV 07/23/24 05:45 Ceftriaxone Sodium 50 ml @ 100 mls/hr DAILY@09 IV 07/24/24 09:00 Metronidazole 100 ml @ 100 mls/hr Q8HR IV 07/23/24 14:00 Pantoprazole Sodium 40 mg DAILY IV 07/23/24 10:00 Examination Constitutional: Patient is alert and oriented to time, place and person and appears to be in acute distress because of the abdominal pain Gen - no pallor, no icterus, no cyanosis, no clubbing, no LAD, no edema . Skin - Patients skin is warm and dry. HEENT - normocephalic, atraumatic, moist mucous membranes. Neck - full ROM, no LAD, no JVD Pulmonary - B/L equal breath sounds. no crackles , no wheezing, no stridor. cardiovascular - normal S1,S2 heard. no murmurs heard. GI - soft, abdomen with the tenderness to the patient in the right lower quadrant at McBurney's point, positive psoas sign. no hepatospleenomegaly. Bowel sounds normoactive Neurological - Bilateral upper extremity strength 5/5, bilateral lower extremity strength 5/5, no facial droop, normal speech, no tremor, no sensory deficiets. laboratory and microbiology Laboratory Tests 07/23/24 01:12 Test 07/23/24 01:12 Range/Units Serum Glucose 116 H 74-106 mg/dL Problem List/Assessment/Plan Problem List/Assessment/Plan Acute intractable abdominal pain Acute appendicitis with a suspected perforation SIRS likely due to above UTI likely acute cystitis - CT abdomen pelvis with IV contrast showed acute appendicitis with probable perforation and collection near its tip mesenteric fat stranding and diffuse soft tissue density subcentimeter mesenteric lymph nodes in the right iliac fossa, right simple ovarian cyst - surgery consulted - patient underwent laparoscopic appendectomy and evacuation of right lower quadrant abdominopelvic abscess - on IV antibiotics - BIANCA drain with serosanguineous fluid - pain management - IV fluids PUD prophylaxis: Protonix DVT prophylaxis: Enoxaparin Goals of care discussed with the patient for over 29 minutes. Full code Plan discussed with Dr. Grant Plan discussed with: Patient Date of Service: July 23, 2024 Billing Provider: FLOR GRANT MD Common Visit Codes: NOT BILLABLE RAUL ALCANTAR RESIDENT July 23, 2024 08:23 FLOR GRANT MD July 23, 2024 22:42
[2024-07-23] MEDS: MORPHINE SULFATE INJ 2 MG/ml SYRG IV PRN ×2 (08:50→15:15)
[2024-07-23] MEDS: ONDANSETRON HCL 4 MG/2 ML VIAL IV PRN ×2 (08:51→19:27)
[2024-07-23 08:58] LABS: INR 1.01 (0.9-1.15); Partial Thromboplastin Time 32.2 SEC (24.5-34.5); Prothrombin Time 10.7 sec (9.3-11.8)
[2024-07-23] MEDS: BUPIVACAINE 0.5% P/F INJ 10 ML VIAL ONE (08:58)
[2024-07-23] MEDS: LIDOCAINE W/ EPINEPHRINE 1% 20ML VIAL ONE (08:58)
[2024-07-23] MEDS ORDERED: MORPHINE SULFATE INJ 2 MG/ml SYRG IV ONE (09:00)
[2024-07-23] MEDS ORDERED: fentaNYL CITRATE 100 MCG/2 ML VL ONE (09:31)
[2024-07-23] MEDS ORDERED: PANTOPRAZOLE 40 MG/10 ML VIAL INJ IV SCH (10:00)
[2024-07-23] MEDS ORDERED: MIDAZOLAM HCL 2MG/2ML 2ml VIAL (1mg/ml) ONE (10:24)
[2024-07-23] MEDS ORDERED: PROPOFOL 10 MG/ML 20 ML IV ONE (11:04)
[2024-07-23] MEDS ORDERED: DexAMETHasone SOD PHOS 10MG/1ML VIAL INJ ONE (11:04)
[2024-07-23] MEDS ORDERED: SUGAMMADEX 200mg/2ml Vial (100MG/ML) IV ONE (11:11)
[2024-07-23] MEDS ORDERED: ACETAMINOPHEN/CODEINE#3 (300/30mg) TAB PO PRN (11:15)
[2024-07-23 11:25] VITALS: PULSE 17; RESP 17; O2SAT 100
[2024-07-23] MEDS ORDERED: ePHEDrine SULFATE 50 MG/ML AMP IV PRN (11:30)
[2024-07-23] MEDS ORDERED: MIDAZOLAM HCL 2MG/2ML 2ml VIAL (1mg/ml) IV PRN (11:30)
[2024-07-23] MEDS ORDERED: fentaNYL CITRATE 100 MCG/2 ML VL IV PRN (11:30)
[2024-07-23] MEDS ORDERED: hydrALAZINE HCL 20 MG/ML VL IV PRN (11:30)
[2024-07-23] MEDS ORDERED: KETOROLAC TROMETH 30 MG/ML 1ML VIAL IV ONE (11:30)
[2024-07-23] MEDS ORDERED: MORPHINE SULFATE 4 MG/ML SYR/VIAL IV PRN (11:30)
[2024-07-23] MEDS: HYDROmorphone HCL 2 MG/ML VL/or syr IV PRN (12:15)
--- NOTE | 2024-07-23 13:24 | DVHINCON2 ---
Date of service: July 23, 2024 Reason for Consultation appendicitis History of Present Illness History Source: Patient, MD Notes Exam Limitations: No limitations HPI 28 years old female presented to the ER for4 evaluation of abdominal pain . Patient states pain started 3 days ago. pain started on her right side and migrated to her umbilicus than to her right lower quadrant. pain is continuous and sharp rating pain 10/10 associated with nausea and vomiting and irhea. Chief Complaint of Abdominal/F: Abdominal pain Location of Abdominal Onset: RLQ Past Medical History Cardiac: No pertinent Hx Pulmonary: No pertinent Hx Central Nervous System: No pertinent Hx GI: No pertinent Hx Hemotology/Oncology: Other (anemia) Hepatobiliary: No pertinent Hx Psychiatric: No pertinent Hx Musculoskeletal: No pertinent Hx Rheumotologic: No pertinent Hx Infectious Disease: No peritnent Hx ENT: No pertinent Hx Renal/: No pertinent Hx Endocrine: No pertinent Hx Dermatology: No pertinent Hx Past Surgical History: No pertinent Hx Family History: No pertinent Hx Smoker: No Hx (Negative) Alocohol: None Drugs: None Lives with: With family Review of Systems Constitutional: No symptom reported Ears, Nose, & Throat: No symptom reported Eyes: No symptom reported Pulmonary/Respiratory: No symptom reported Cardiovascular: No symptom reported Gastrointestinal: Nausea, Vomiting, Abdominal Pain, Diarrhea Genitourinary: No symptom reported Musculoskeletal: No symptom reported Skin: No symptom reported Psychiatric: No symptom reported Endocrine: No symptom reported Hemotologic/Lymphatic: No symptom reported H&P Exam Vital Signs Vital Signs Date Time Temp Pulse Resp B/P (MAP) Pulse Ox O2 Delivery O2 Flow Rate FiO2 07/23/24 12:10 89 18 133/90 (104) 96 07/23/24 11:25 97.2 97.2 07/23/24 11:25 Mask 6.0 100 General Appeara: Well developed, Well nourished, Mild distress Head Exam: Normal inspection Neck Exam: Normal inspection, Non-tender Eye Exam: bilateral eye Normal inspection Nasal Exam: Normal inspection Mouth: Normal Inspection Pulmonary/Respiratory: Normal inspection, Normal breath sounds, Lungs clear Abdominal Exam: Normal bowel sounds Abdominal Pain Onset Location: RLQ Appearance: Appropriate appearance Eye contact/ Speech: Cooperative, Good eye contact, Normal speech Thoughts/Psych: Normal thought pattern Skin Exam: Normal inspection, Normal color, Warm/dry Labs/Xrays Labs Test 07/23/24 08:14 5/27/25 03:31 07/23/24 01:42 07/23/24 01:12 Range/Units Prothrombin Time 10.7 9.3-11.8 sec Prothrombin Time INR 1.01 0.9-1.15 Activated Partial Thromboplast Time 32.2 24.5-34.5 SEC Lactic Acid Level 1.7 0.4-2.0 mmol/L Urine Color Light-orange Yellow Urine Clarity Clear Clear Urine pH 6.0 5.0-9.0 Urine Specific [place] 1.047 H 1.001-1.035 Urine Protein 1+ H Negative Urine Ketones 4+ H Negative Urine Blood 3+ H Negative /uL Urine Nitrite Negative Negative Urine Bilirubin Negative Negative Urine Urobilinogen Normal Negative mg/dL Urine Leukocyte Esterase 1+ Negative /uL Urine RBC 16 0 - 4 /hpf Urine Microscopic WBC 26 H 0-5 /HPF Urine Squamous Epithelial Cells Few <5 /hpf Urine Bacteria Few H None Seen /hpf Urine Mucus Few None Seen Urine Glucose Trace Normal mg/dL White Blood Count 14.8 H 4.4-10.8 10^3/uL Red Blood Count 5.09 4.0-5.20 10^6/uL Hemoglobin 14.1 12.2-16.2 g/dL Hematocrit 43.5 36.0-46.0 % Mean Corpuscular Volume 85.4 80.0-100.0 fL Mean Corpuscular Hemoglobin 27.8 L 28.0-32.0 pg Mean Corpuscular Hemoglobin Concent 32.5 32.0-36.0 g/dL Red Cell Distribution Width 13.8 11.8-14.3 % Platelet Count 332 140-450 10^3/uL Mean Platelet Volume 9.3 6.9-10.8 fL Neutrophils (%) (Auto) 83.5 H 37.0-80.0 % Lymphocytes (%) (Auto) 11.5 10.0-50.0 % Monocytes (%) (Auto) 4.7 0.0-12.0 % Eosinophils (%) (Auto) 0.0 0.0-7.0 % Basophils (%) (Auto) 0.3 0.0-2.0 % Neutrophils # (Auto) 12.4 H 1.6-8.6 10 ^3/uL Lymphocytes # (Auto) 1.7 0.4-5.4 10 ^3/uL Monocytes # (Auto) 0.7 0-1.3 10 ^3/uL Eosinophils # (Auto) 0 0-0.8 10 ^3/uL Basophils # (Auto) 0 0-0.2 10 ^3/uL Nucleated Red Blood Cells 0.0 % Sodium Level 136 136-145 mmol/L Potassium Level 3.4 L 3.5-5.1 mmol/L Chloride Level 101 98-107 mmol/L Carbon Dioxide Level 23 20-31 mmol/L Anion Gap 12 5-15 Blood Urea Nitrogen 7 L 9-23 mg/dL Creatinine 0.63 0.550-1.02 mg/dL Glomerular Filtration Rate Calc 125 >90 mL/min BUN/Creatinine Ratio 11.1 10.0-20.0 Serum Glucose 116 H 74-106 mg/dL Calcium Level 9.8 8.7-10.4 mg/dL Total Bilirubin 0.6 0.2-1.0 mg/dL Aspartate Amino Transferase (AST) < 8 L 13-40 U/L Alanine Aminotransferase (ALT) 10 7-40 U/L Alkaline Phosphatase 83 46-116 U/L Total Protein 8.3 H 5.7-8.2 g/dL Albumin 5.4 H 3.2-4.8 g/dL Beta HCG, Quantitative 0.1 L 1.5-4.2 mIU/mL Assessment/Plan Problem List: (1) Acute appendicitis (2) Intractable abdominal pain Primary Diagnosis appendicitis Plan patient complaint of abdominal pain for the past 3 days which started on her left side and migrated top her right lower quadrant. She also reports nausea, vomiting, and diarhea right lower quadrant pain, rebound tenderness elevated wbc Plan: Laparoscopic possibly open appendectomy operation explained including all risk and complications in detail Plan discussed with: Patient, Other (Dr. valdivia ) Visit Coding Surgery Date of Service if different f: July 23, 2024 Billing Provider: WILVER VALDIVIA MD Surgery Visit Codes: 01159 - INP CONSULT <80 MIN LATOYA SALAS BLUING OV[employer] TENDER July 23, 2024 13:24
--- NOTE | 2024-07-23 13:31 | DVHOP ---
DATE OF SURGERY: 07/23/2024 PREOPERATIVE DIAGNOSIS: Ruptured appendicitis. POSTOPERATIVE DIAGNOSIS: Ruptured appendicitis. SURGEON: Doni Pelletier MD. ENTERPRISE CLOUD ARCHITECT: Robert Rebollar. ANESTHESIA: General endotracheal, Dr. Rod. PROCEDURE: Laparoscopy, laparoscopic appendectomy, and evacuation of right lower quadrant abdominal pelvic abscess. DESCRIPTION OF PROCEDURE: Under adequate anesthesia with the patient's skin prepped and draped, a supraumbilical incision was made and Veress needle inserted by the hanging drop technique to establish pneumoperitoneum to 15 mmHg pressure by insufflation with carbon dioxide. With the abdomen fully distended, the needle was removed and replaced with a 5 mm trocar port through which a 0-degree viewing laparoscope was inserted. Under direct vision, 5 and 10 mm ports were inserted through the abdominal wall in the midline. Instrumentation was then introduced. Laparoscopy was performed revealing no obvious unexpected pathology on the serosal surfaces visualized. The appendix was a retrocecal appendix affected by acute and chronic appendicitis. There was an abscess surrounding the tip of the appendix, which was perforated. The abscess was cultured. Cultures and sensitivities were submitted of the pus aspirated. There was approximately 25-50 mL of pus that was evacuated at the time of the procedure. The appendix was densely adherent to the lateral posterior abdominal wall. It was then mobilized to the confluence with the cecum at the base of the appendix at the confluence with the cecum. It was cross-clamped and divided with an Endo ADRIANA stapler with vascular jimena. The mesoappendix was similarly divided with a stapling device and the specimen was then removed from the peritoneal cavity by placement in a specimen extraction bag, which was withdrawn through the 10 mm port site in the infraumbilical abdominal wall. Subsequently, the right lower quadrant was profusely irrigated. Irrigant was aspirated. A 10 mm Vance-Dey drain was placed into the vicinity of the appendectomy site and the tip of the drain was placed into the pelvis to the site of the evacuated periappendiceal abscess. The tube was exteriorized to the 5 mm port site in the supraumbilical incision and secured with a 2-0 nylon suture. Following assurance of complete hemostasis at the site of the port sites and at the site of the appendectomy site, the instrumentation was withdrawn. Pneumoperitoneum was evacuated. The fascial defect was closed using 0 Vicryl. Wounds were approximated using Monocryl sutures, Dermabond glue, and Steri-Strips. The patient remained stable throughout the procedure and left the operating room following an accurate needle and sponge counts. MD SONIA Howell/JEFF TID: [id number] RECEIPT: [id number]
[2024-07-23] MEDS: metroNIDAZOLE 500MG/100ML 100 ML IV SCH (14:11)
[2024-07-23 16:30] VITALS: BP 125/79; PULSE 113; RESP 17; TEMP 98.4; O2SAT 97
[2024-07-23] MEDS: ACETAMINOPHEN/CODEINE#3 (300/30mg) TAB PO PRN (16:46)
[2024-07-23 17:10] VITALS: TEMP 98.4
[2024-07-23] MEDS: D5W/SOD CHL 0.45%/KCL 20MEQ 1,000 ML IV SCH (19:35)
[2024-07-23 21:00] VITALS: BP 122/76; PULSE 102; RESP 18; TEMP 98.7; O2SAT 96
[2024-07-24 01:00] VITALS: BP 136/87; PULSE 110; RESP 20; TEMP 98.1; O2SAT 97
[2024-07-24 05:00] VITALS: BP 119/81; PULSE 109; RESP 20; TEMP 98; O2SAT 96
[2024-07-24] MEDS: KETOROLAC TROMETH 30 MG/ML 1ML VIAL IV ONE (08:38)
[2024-07-24] MEDS: cefTRIAXone 1GM/50ML D5W 50 ML IV SCH (08:38)
[2024-07-24] MEDS: PANTOPRAZOLE 40 MG/10 ML VIAL INJ IV SCH (08:38)
[2024-07-24 09:00] VITALS: BP 136/84; PULSE 108; RESP 20; TEMP 98.6; O2SAT 99
[2024-07-24 09:26] LABS: Basophils # (auto) 0 10 ^3/uL (0-0.2); Basophils % (auto) 0.1 % (0.0-2.0); Eosinophils # (auto) 0 10 ^3/uL (0-0.8); Hematocrit 35.5 % (36.0-46.0); Hemoglobin 11.8 g/dL (12.2-16.2); Lymphocytes # (auto) 1.5 10 ^3/uL (0.4-5.4); Lymphocytes % (auto) 12.4 % (10.0-50.0); Mean Corpuscular Hemoglobin 28.2 pg (28.0-32.0); Mean Corpuscular Hgb Conc. 33.2 g/dL (32.0-36.0); Mean Corpuscular Volume 84.7 fL (80.0-100.0); Monocytes # (auto) 1.2 10 ^3/uL (0-1.3); Monocytes % (auto) 9.3 % (0.0-12.0); Neutrophils # (auto) 9.8 10 ^3/uL (1.6-8.6); Neutrophils % (auto) 78.2 % (37.0-80.0); Platelet Count (auto) 293 10^3/uL (140-450); Red Blood Cells 4.19 10^6/uL (4.0-5.20); Red Cell Distribution Width 13.9 % (11.8-14.3); White Blood Cell 12.5 10^3/uL (4.4-10.8)
[2024-07-24 09:39] LABS: Albumin 4.1 g/dL (3.2-4.8); Alkaline Phosphatase 63 U/L (46-116); Anion Gap 7 (5-15); BUN/Creatinine Ratio 11.3 (10.0-20.0); Calcium 9.4 mg/dL (8.7-10.4); Carbon Dioxide 24 mmol/L (20-31); Glucose 106 mg/dL (74-106); Potassium 3.7 mmol/L (3.5-5.1); Sodium 139 mmol/L (136-145); Total Protein 6.5 g/dL (5.7-8.2)
[2024-07-24 09:40] LABS: Alanine Aminotransferase < 9 U/L (7-40); Aspartate Aminotransferase < 8 U/L (13-40); Bilirubin, Total 0.7 mg/dL (0.2-1.0); Blood Urea Nitrogen 6 mg/dL (9-23); Chloride 108 mmol/L (98-107)
[2024-07-24 13:00] VITALS: BP 118/76; PULSE 96; RESP 21; TEMP 97.6; O2SAT 99
--- NOTE | 2024-07-24 14:08 | DVHPN2 ---
Progress Note Date Seen: July 24, 2024 Medical Necessity Reason Pt with a Central, PICC or Fol: No Objective vital signs Vital Sign Date Time Temp Pulse Resp B/P (MAP) Pulse Ox O2 Delivery O2 Flow Rate FiO2 07/24/24 09:00 98.6 108 20 136/84 (101) 99 98.6 07/24/24 08:00 Room Air* 0 21 Total Intake and Output 07/23/24 07/23/24 07/24/24 15:00 23:00 07:00 Intake Total 50 ml 0 ml 320 ml Output Total 40 ml 30 ml Balance 10 ml -30 ml 320 ml medications Current Medications Medications Dose Ordered Sig/Roshni Route Start Time Stop Time Status Last Admin Dose Admin Ceftriaxone Sodium 50 ml @ 100 mls/hr DAILY@09 IV 07/24/24 09:00 07/24/24 08:38 100 MLS/HR Metronidazole 100 ml @ 100 mls/hr Q8HR IV 07/23/24 14:00 07/24/24 05:14 100 MLS/HR Morphine Sulfate 2 mg Q4HP PRN IV 07/23/24 09:00 07/24/24 04:09 2 MG Potassium Chloride/Dextrose/ Sod Cl 1,000 ml @ 120 mls/hr Q8H20M IV 07/23/24 11:15 Ondansetron HCl 4 mg Q4HPRN PRN IV 07/23/24 11:15 07/24/24 04:07 4 MG Pantoprazole Sodium 40 mg DAILY IV 07/24/24 10:00 07/24/24 08:38 40 MG Acetaminophen/ Codeine Phosphate 1 tab Q4HP PRN PO 07/23/24 11:15 07/24/24 02:39 1 TAB Acetaminophen/ Codeine Phosphate 1 tab Q4HP PRN PO 07/23/24 11:15 Hold laboratory and microbiology Laboratory Tests 07/24/24 09:05 Test 07/24/24 09:05 Range/Units Serum Glucose 106 74-106 mg/dL Problem List/Assessment/Plan Problem List/Assessment/Plan 07/24/24 feels better, passing flatus, wounds clean and well approximated, abdomen appropriately tender, advance diet, she is cleared for discharge tomorrow Plan discussed with: Patient WILVER HILLMAN MD July 24, 2024 14:08
--- NOTE | 2024-07-24 16:59 | DVHPNRES ---
Progress Note Date Seen: July 24, 2024 Resident Creating Document: RENETTA ALCANTARMAURICIO RESIDENT Medical Necessity Reason Pt with a Central, PICC or Fol: No Subjective Review of Systems Patient seen and examined at the bedside Reported mild abdominal pain and tenderness S/p laparoscopic appendectomy Patient passed flatus Objective vital signs Vital Sign Date Time Temp Pulse Resp B/P (MAP) Pulse Ox O2 Delivery O2 Flow Rate FiO2 07/24/24 13:00 97.6 96 21 118/76 (90) 99 97.6 07/24/24 08:00 Room Air* 0 21 Total Intake and Output 07/23/24 07/23/24 07/24/24 15:00 23:00 07:00 Intake Total 50 ml 0 ml 320 ml Output Total 40 ml 30 ml Balance 10 ml -30 ml 320 ml medications Current Medications Medications Dose Ordered Sig/Roshni Route Start Time Stop Time Status Last Admin Dose Admin Ceftriaxone Sodium 50 ml @ 100 mls/hr DAILY@09 IV 07/24/24 09:00 07/24/24 08:38 100 MLS/HR Metronidazole 100 ml @ 100 mls/hr Q8HR IV 07/23/24 14:00 07/24/24 15:17 100 MLS/HR Potassium Chloride/Dextrose/ Sod Cl 1,000 ml @ 120 mls/hr Q8H20M IV 07/23/24 11:15 Ondansetron HCl 4 mg Q4HPRN PRN IV 07/23/24 11:15 07/24/24 04:07 4 MG Pantoprazole Sodium 40 mg DAILY IV 07/24/24 10:00 07/24/24 08:38 40 MG Acetaminophen/ Codeine Phosphate 1 tab Q4HP PRN PO 07/23/24 11:15 07/24/24 16:24 1 TAB Acetaminophen/ Codeine Phosphate 1 tab Q4HP PRN PO 07/23/24 11:15 Hold Morphine Sulfate 2 mg Q4HP PRN IV 07/24/24 15:30 Examination Constitutional: Patient is alert and oriented to time, place and person and appears to be in acute distress because of the abdominal pain Gen - no pallor, no icterus, no cyanosis, no clubbing, no LAD, no edema . Skin - Patients skin is warm and dry. HEENT - normocephalic, atraumatic, moist mucous membranes. Neck - full ROM, no LAD, no JVD Pulmonary - B/L equal breath sounds. no crackles , no wheezing, no stridor. cardiovascular - normal S1,S2 heard. no murmurs heard. GI - soft, moderately tender abdomen status post laparoscopic appendectomy, bowel sounds normoactive Neurological - Bilateral upper extremity strength 5/5, bilateral lower extremity strength 5/5, no facial droop, normal speech, no tremor, no sensory deficiets. laboratory and microbiology Laboratory Tests 07/24/24 09:05 Test 07/24/24 09:05 Range/Units Serum Glucose 106 74-106 mg/dL Microbiology Date/Time Source Procedure Growth Status 07/23/24 10:42 Abdomen Gram Stain - Final Resulted 07/23/24 10:42 Abdomen Anaerobic Culture - Preliminary Resulted 07/23/24 10:42 Abdomen Aerobic Culture - Preliminary Resulted 07/23/24 03:31 Blood Blood Culture - Preliminary NO GROWTH AFTER 24 HOURS OF INCUBATION. Resulted 07/23/24 01:42 Voided Urine Urine Culture - Preliminary Resulted Problem List/Assessment/Plan Problem List/Assessment/Plan Acute intractable abdominal pain Acute appendicitis with a suspected perforation SIRS likely due to above UTI likely acute cystitis - CT abdomen pelvis with IV contrast showed acute appendicitis with probable perforation and collection near its tip mesenteric fat stranding and diffuse soft tissue density subcentimeter mesenteric lymph nodes in the right iliac fossa, right simple ovarian cyst - surgery consulted - patient underwent laparoscopic appendectomy and evacuation of right lower quadrant abdominopelvic abscess - on IV antibiotics - BIANCA drain with serosanguineous fluid - pain management - IV fluids - advanced to full liquids PUD prophylaxis: Protonix DVT prophylaxis: Enoxaparin Goals of care discussed with the patient for over 29 minutes. Full code Plan discussed with Dr. Grant Plan discussed with: Patient My Orders My Orders Orders - RAUL ALCANTAR Procedure Category Date Status Time * Crew Dispatcher CONS 07/24/24 Transmitted Consult Morphine Sulfate PHA 07/24/24 In Process Injection 15:30 Full Liq Diet DIET 07/24/24 Transmitted Dinner Date of Service: July 24, 2024 Billing Provider: FLOR GRANT MD Common Visit Codes: [id number] INP/OBS CARE(HIGH) RAUL ALCANTAR RESIDENT July 24, 2024 16:59 FLOR GRANT MD July 24, 2024 17:46
[2024-07-24 17:00] VITALS: BP 123/75; PULSE 95; RESP 20; TEMP 97.6; O2SAT 99
[2024-07-24] MEDS: MORPHINE SULFATE 4 MG/ML SYR/VIAL IV PRN (18:30)
[2024-07-24 21:00] VITALS: BP 129/84; PULSE 105; RESP 20; TEMP 97.8; O2SAT 99
[2024-07-24] MEDS: HYDROmorphone HCL 2 MG/ML VL/or syr IV ONE (22:25)
[2024-07-25 01:00] VITALS: BP 125/82; PULSE 116; RESP 21; TEMP 98; O2SAT 96
[2024-07-25] MEDS: KETOROLAC TROMETH 30 MG/ML 1ML VIAL IV ONE ×2 (01:28→10:29)
[2024-07-25 05:00] VITALS: BP 135/84; PULSE 111; RESP 21; TEMP 97.4; O2SAT 98
[2024-07-25] MEDS: HYDROmorphone HCL 2 MG/ML VL/or syr IV ONE (05:28)
[2024-07-25 06:47] LABS: Basophils # (auto) 0 10 ^3/uL (0-0.2); Basophils % (auto) 0.1 % (0.0-2.0); Eosinophils # (auto) 0 10 ^3/uL (0-0.8); Eosinophils % (auto) 0.1 % (0.0-7.0); Hemoglobin 11.6 g/dL (12.2-16.2); Lymphocytes # (auto) 1.9 10 ^3/uL (0.4-5.4); Lymphocytes % (auto) 17.6 % (10.0-50.0); Mean Corpuscular Hemoglobin 28.4 pg (28.0-32.0); Mean Corpuscular Hgb Conc. 33.1 g/dL (32.0-36.0); Mean Corpuscular Volume 85.8 fL (80.0-100.0); Monocytes % (auto) 9.1 % (0.0-12.0); Neutrophils # (auto) 8.1 10 ^3/uL (1.6-8.6); Neutrophils % (auto) 73.1 % (37.0-80.0); Platelet Count (auto) 315 10^3/uL (140-450); Red Blood Cells 4.08 10^6/uL (4.0-5.20); Red Cell Distribution Width 13.8 % (11.8-14.3); White Blood Cell 11.1 10^3/uL (4.4-10.8)
[2024-07-25 07:00] LABS: Calcium 10.1 mg/dL (8.7-10.4); Chloride 106 mmol/L (98-107); Sodium 141 mmol/L (136-145)
[2024-07-25 07:01] LABS: Anion Gap 12 (5-15); Carbon Dioxide 23 mmol/L (20-31)
[2024-07-25 07:04] LABS: Potassium 3.4 mmol/L (3.5-5.1)
[2024-07-25 07:06] LABS: BUN/Creatinine Ratio 17.1 (10.0-20.0); Blood Urea Nitrogen 12 mg/dL (9-23); Glucose 83 mg/dL (74-106)
[2024-07-25] MEDS: SODIUM CHLORIDE 0.9% 500 ML IV ONE (08:05)
--- NOTE | 2024-07-25 08:27 | DVHPN2 ---
Progress Note Date Seen: July 25, 2024 Medical Necessity Reason Pt with a Central, PICC or Fol: No Objective vital signs Vital Sign Date Time Temp Pulse Resp B/P (MAP) Pulse Ox O2 Delivery O2 Flow Rate FiO2 07/25/24 05:58 116 21 125/82 07/25/24 05:00 97.4 98 97.4 07/24/24 20:00 Room Air* 0 21 Total Intake and Output 07/24/24 07/24/24 07/25/24 15:00 23:00 07:00 Intake Total 50 ml 100 ml 240 ml Output Total 20 ml Balance 50 ml 80 ml 240 ml medications Current Medications Medications Dose Ordered Sig/Roshni Route Start Time Stop Time Status Last Admin Dose Admin Ceftriaxone Sodium 50 ml @ 100 mls/hr DAILY@09 IV 07/24/24 09:00 07/24/24 08:38 100 MLS/HR Metronidazole 100 ml @ 100 mls/hr Q8HR IV 07/23/24 14:00 07/25/24 05:01 100 MLS/HR Potassium Chloride/Dextrose/ Sod Cl 1,000 ml @ 120 mls/hr Q8H20M IV 07/23/24 11:15 Ondansetron HCl 4 mg Q4HPRN PRN IV 07/23/24 11:15 07/24/24 04:07 4 MG Pantoprazole Sodium 40 mg DAILY IV 07/24/24 10:00 07/24/24 08:38 40 MG Acetaminophen/ Codeine Phosphate 1 tab Q4HP PRN PO 07/23/24 11:15 07/24/24 16:24 1 TAB Acetaminophen/ Codeine Phosphate 1 tab Q4HP PRN PO 07/23/24 11:15 Hold Morphine Sulfate 2 mg Q4HP PRN IV 07/24/24 15:30 07/24/24 18:30 2 MG laboratory and microbiology Laboratory Tests 07/25/24 05:10 Test 07/25/24 05:10 Range/Units Serum Glucose 83 74-106 mg/dL Problem List/Assessment/Plan Problem List/Assessment/Plan 07/24/24 feels better, passing flatus, wounds clean and well approximated, abdomen appropriately tender, advance diet, she is cleared for discharge tomorrow 07/25/24 REFUSED TO AMBULATE, i STRESSED THE IMPORTANCE OF AMBULATION TO PREVENT COMPLICATIONS, HER ABDOMEN IS NON DISTENDED, WOUNDS AND CLEAN AND WELL APPROXIMATED. BIANCA DRAINAGE SEROSANGUINEOUS, SHE IS NOT READY FOR DISCHARGE TODAY. Plan discussed with: Patient WILVER HILLMAN MD July 25, 2024 08:27
[2024-07-25 09:00] VITALS: BP 119/75; PULSE 102; RESP 20; TEMP 98.2; O2SAT 99
[2024-07-25] MEDS: POTASSIUM EFFERVESENT TAB 25 MEQ PO ONE (10:28)
[2024-07-25] MEDS: ONDANSETRON HCL 4 MG/2 ML VIAL IV ONE (10:29)
[2024-07-25 13:00] VITALS: BP 124/73; PULSE 103; RESP 20; TEMP 98.2; O2SAT 96
[2024-07-25 17:00] VITALS: BP 136/86; PULSE 116; RESP 20; TEMP 98.1; O2SAT 95
[2024-07-25 21:00] VITALS: BP 126/85; PULSE 104; RESP 20; TEMP 97.6; O2SAT 100
[2024-07-25] MEDS: KETOROLAC TROMETH 30 MG/ML 1ML VIAL IV PRN (21:08)
--- NOTE | 2024-07-25 22:36 | DVHPNRES ---
Progress Note Date Seen: July 25, 2024 Resident Creating Document: JHRAUL MCMILLAN RESIDENT Medical Necessity Reason Pt with a Central, PICC or Fol: No Subjective Review of Systems Patient seen and examined at the bedside Reported mild abdominal pain and tenderness S/p laparoscopic appendectomy Patient passed flatus Objective vital signs Vital Sign Date Time Temp Pulse Resp B/P (MAP) Pulse Ox O2 Delivery O2 Flow Rate FiO2 07/25/24 20:00 Room Air* 0 21 07/25/24 17:42 118 20 147/95 07/25/24 17:00 98.1 95 98.1 Total Intake and Output 07/24/24 07/24/24 07/25/24 15:00 23:00 07:00 Intake Total 50 ml 100 ml 240 ml Output Total 20 ml Balance 50 ml 80 ml 240 ml medications Current Medications Medications Dose Ordered Sig/Roshni Route Start Time Stop Time Status Last Admin Dose Admin Ceftriaxone Sodium 50 ml @ 100 mls/hr DAILY@09 IV 07/24/24 09:00 07/25/24 10:28 100 MLS/HR Metronidazole 100 ml @ 100 mls/hr Q8HR IV 07/23/24 14:00 07/25/24 21:08 100 MLS/HR Potassium Chloride/Dextrose/ Sod Cl 1,000 ml @ 120 mls/hr Q8H20M IV 07/23/24 11:15 07/24/24 17:00 120 MLS/HR Ondansetron HCl 4 mg Q4HPRN PRN IV 07/23/24 11:15 07/25/24 10:29 4 MG Pantoprazole Sodium 40 mg DAILY IV 07/24/24 10:00 07/25/24 10:29 40 MG Acetaminophen/ Codeine Phosphate 1 tab Q4HP PRN PO 07/23/24 11:15 07/25/24 19:02 1 TAB Acetaminophen/ Codeine Phosphate 1 tab Q4HP PRN PO 07/23/24 11:15 Hold Morphine Sulfate 2 mg Q4HP PRN IV 07/24/24 15:30 Hold 07/25/24 17:12 2 MG Ketorolac Tromethamine 15 mg Q6HPRN PRN IV 07/25/24 20:45 07/30/24 20:44 07/25/24 21:08 15 MG Examination Constitutional: Patient is alert and oriented to time, place and person and appears to be in acute distress because of the abdominal pain Gen - no pallor, no icterus, no cyanosis, no clubbing, no LAD, no edema . Skin - Patients skin is warm and dry. HEENT - normocephalic, atraumatic, moist mucous membranes. Neck - full ROM, no LAD, no JVD Pulmonary - B/L equal breath sounds. no crackles , no wheezing, no stridor. cardiovascular - normal S1,S2 heard. no murmurs heard. GI - soft, moderately tender abdomen status post laparoscopic appendectomy, bowel sounds normoactive Neurological - Bilateral upper extremity strength 5/5, bilateral lower extremity strength 5/5, no facial droop, normal speech, no tremor, no sensory deficiets. laboratory and microbiology Laboratory Tests 07/25/24 05:10 Test 07/25/24 05:10 Range/Units Serum Glucose 83 74-106 mg/dL Microbiology Date/Time Source Procedure Growth Status 07/23/24 10:42 Abdomen Gram Stain - Final Resulted 07/23/24 10:42 Anaerobic Culture - Final Bacteroides caccae Resulted 07/23/24 10:42 Aerobic Culture - Preliminary Escherichia coli Resulted 07/23/24 03:31 Blood Blood Culture - Preliminary NO GROWTH AFTER 48 HOURS OF INCUBATION. Resulted 07/23/24 01:42 Voided Urine Urine Culture - Final Complete Problem List/Assessment/Plan Problem List/Assessment/Plan Acute intractable abdominal pain Acute appendicitis with a suspected perforation SIRS likely due to above UTI likely acute cystitis - CT abdomen pelvis with IV contrast showed acute appendicitis with probable perforation and collection near its tip mesenteric fat stranding and diffuse soft tissue density subcentimeter mesenteric lymph nodes in the right iliac fossa, right simple ovarian cyst - surgery consulted - patient underwent laparoscopic appendectomy and evacuation of right lower quadrant abdominopelvic abscess - on IV antibiotics - BIANCA drain with serosanguineous fluid - pain management - IV fluids - advanced to clear liquid diet PUD prophylaxis: Protonix DVT prophylaxis: Enoxaparin Goals of care discussed with the patient for over 29 minutes. Full code Plan discussed with Dr. Grant Plan discussed with: Patient My Orders My Orders Orders - RAUL ALCANTAR RESIDENT Procedure Category Date Status Time Clear Liq Diet DIET 07/25/24 Transmitted Lunch Dietary Evaluation Review Comments: Regular diet. Texture as tolerated Expected Outcomes/Goals: Gradual wt loss Date of Service: July 25, 2024 Billing Provider: FLOR GRANT MD Common Visit Codes: [id number] INP/OBS CARE(HIGH) RAUL ALCANTAR RESIDENT July 25, 2024 22:36 FLOR GRANT MD July 25, 2024 23:07
[2024-07-26 05:00] VITALS: BP 137/92; PULSE 103; RESP 19; TEMP 98.1; O2SAT 97
[2024-07-26 06:56] LABS: Basophils # (auto) 0 10 ^3/uL (0-0.2); Basophils % (auto) 0.3 % (0.0-2.0); Eosinophils # (auto) 0 10 ^3/uL (0-0.8); Eosinophils % (auto) 0.3 % (0.0-7.0); Hematocrit 32.8 % (36.0-46.0); Hemoglobin 10.9 g/dL (12.2-16.2); Lymphocytes # (auto) 1.4 10 ^3/uL (0.4-5.4); Mean Corpuscular Hemoglobin 28.5 pg (28.0-32.0); Mean Corpuscular Hgb Conc. 33.3 g/dL (32.0-36.0); Mean Corpuscular Volume 85.5 fL (80.0-100.0); Monocytes # (auto) 0.7 10 ^3/uL (0-1.3); Monocytes % (auto) 9.5 % (0.0-12.0); Neutrophils # (auto) 5.3 10 ^3/uL (1.6-8.6); Neutrophils % (auto) 70.9 % (37.0-80.0); Platelet Count (auto) 310 10^3/uL (140-450); Red Blood Cells 3.84 10^6/uL (4.0-5.20); Red Cell Distribution Width 13.5 % (11.8-14.3); Sodium 141 mmol/L (136-145); White Blood Cell 7.5 10^3/uL (4.4-10.8)
[2024-07-26 06:57] LABS: Anion Gap 8 (5-15); Calcium 9.4 mg/dL (8.7-10.4); Carbon Dioxide 23 mmol/L (20-31)
[2024-07-26 07:01] LABS: Chloride 110 mmol/L (98-107); Potassium 3.4 mmol/L (3.5-5.1)
[2024-07-26 07:02] LABS: Blood Urea Nitrogen 11 mg/dL (9-23); Glucose 97 mg/dL (74-106)
[2024-07-26 08:00] VITALS: PULSE 112; RESP 20; O2SAT 96
[2024-07-26 09:00] VITALS: BP 139/90; PULSE 112; RESP 20; TEMP 98.4; O2SAT 96
[2024-07-26] MEDS: SODIUM CHLORIDE 0.9% 500 ML IV ONE (12:36)
[2024-07-26] MEDS: POTASSIUM EFFERVESENT TAB 25 MEQ PO ONE (12:36)
[2024-07-26 13:00] VITALS: BP 120/74; PULSE 105; RESP 20; TEMP 97.7; O2SAT 99
--- NOTE | 2024-07-26 13:38 | DVHPN2 ---
Subjective Date Seen: July 26, 2024 Post op day Post op day: 3 Patient reports: No new complaints, Feels better Nursing reports: No new complaints General: Normal HNT: Normal Cardiovascular: Normal Respiratory: Normal Gastrointestinal: Normal Genitourinary: Normal Musculoskeletal: Normal Neurological: Normal Objective Vitals Vital Sign Date Time Temp Pulse Resp B/P (MAP) Pulse Ox O2 Delivery O2 Flow Rate FiO2 07/26/24 09:00 98.4 112 20 139/90 (106) 96 98.4 07/25/24 20:00 Room Air* 0 21 Total Intake and Output 07/25/24 07/25/24 07/26/24 15:00 23:00 07:00 Intake Total 50 ml 750 ml 570 ml Output Total 25 ml Balance 25 ml 750 ml 570 ml Medications Current Medications Medications Dose Ordered Sig/Roshni Route Start Time Stop Time Status Last Admin Dose Admin Ceftriaxone Sodium 50 ml @ 100 mls/hr DAILY@09 IV 07/24/24 09:00 07/26/24 09:14 100 MLS/HR Metronidazole 100 ml @ 100 mls/hr Q8HR IV 07/23/24 14:00 07/26/24 05:58 100 MLS/HR Potassium Chloride/Dextrose/ Sod Cl 1,000 ml @ 120 mls/hr Q8H20M IV 07/23/24 11:15 07/24/24 17:00 120 MLS/HR Ondansetron HCl 4 mg Q4HPRN PRN IV 07/23/24 11:15 07/25/24 10:29 4 MG Pantoprazole Sodium 40 mg DAILY IV 07/24/24 10:00 07/26/24 09:14 40 MG Acetaminophen/ Codeine Phosphate 1 tab Q4HP PRN PO 07/23/24 11:15 07/26/24 12:38 1 TAB Acetaminophen/ Codeine Phosphate 1 tab Q4HP PRN PO 07/23/24 11:15 Hold Morphine Sulfate 2 mg Q4HP PRN IV 07/24/24 15:30 Hold 07/25/24 17:12 2 MG Ketorolac Tromethamine 15 mg Q6HPRN PRN IV 07/25/24 20:45 07/30/24 20:44 07/26/24 02:21 15 MG General: Normal, Well developed, Obese Head/Eyes: Normal ENT: Normal Neck: Normal Lungs: Normal Cardiovascular: Normal Abdominal: Normal, Soft Labs and Microbiology Laboratory Tests 07/26/24 04:58 Test 07/26/24 04:58 Range/Units Serum Glucose 97 74-106 mg/dL Ass/Plan Problem List Acute intractable abdominal pain Acute appendicitis with a suspected perforation SIRS likely due to above UTI likely acute cystitis - CT abdomen pelvis with IV contrast showed acute appendicitis with probable perforation and collection near its tip mesenteric fat stranding and diffuse soft tissue density subcentimeter mesenteric lymph nodes in the right iliac fossa, right simple ovarian cyst - surgery consulted - patient underwent laparoscopic appendectomy and evacuation of right lower quadrant abdominopelvic abscess - on IV antibiotics - LUIZ drain with serosanguineous fluid - pain management - IV fluids - advanced to clear liquid diet PUD prophylaxis: Protonix DVT prophylaxis: Enoxaparin Goals of care discussed with the patient for over 29 minutes. Full code Plan discussed with Dr. Grant Assessment/Plan s/p laparoscopic appendectomy POD # 3 Luiz drain serous fluid tolerating diet, bowel function OK to discharge per surgery point of view patient to follow up in surgery clinic in two weeks Empty LUIZ drain daily and record Prognosis: Good Plan discussed with patient, Dr. Pelletier Visit Coding Surgery Date of Service if different f: July 26, 2024 Billing Provider: WILVER PELLETIER MD Surgery Visit Codes: [id number] INP/OBS CARE(HIGH) LATOYA SALAS NP July 26, 2024 13:38
[2024-07-26 17:00] VITALS: BP 133/85; PULSE 90; RESP 20; TEMP 97.9; O2SAT 98
--- NOTE | 2024-07-26 18:16 | DVHPNRES ---
Progress Note Date Seen: July 26, 2024 Resident Creating Document: RAUL ALCANTAR RESIDENT Medical Necessity Reason Pt with a Central, PICC or Fol: No Subjective Review of Systems Patient seen and examined at the bedside Reported improvement in the abdominal pain and she passed flatus and small bowel movement Has a appropriate abdominal tenderness status post surgery Objective vital signs Vital Sign Date Time Temp Pulse Resp B/P (MAP) Pulse Ox O2 Delivery O2 Flow Rate FiO2 07/26/24 17:00 97.9 90 20 133/85 (101) 98 97.9 07/26/24 08:00 Room Air* 0 21 Total Intake and Output 07/25/24 07/25/24 07/26/24 15:00 23:00 07:00 Intake Total 50 ml 750 ml 570 ml Output Total 25 ml Balance 25 ml 750 ml 570 ml medications Current Medications Medications Dose Ordered Sig/Roshni Route Start Time Stop Time Status Last Admin Dose Admin Ceftriaxone Sodium 50 ml @ 100 mls/hr DAILY@09 IV 07/24/24 09:00 07/26/24 09:14 100 MLS/HR Metronidazole 100 ml @ 100 mls/hr Q8HR IV 07/23/24 14:00 07/26/24 14:50 100 MLS/HR Potassium Chloride/Dextrose/ Sod Cl 1,000 ml @ 120 mls/hr Q8H20M IV 07/23/24 11:15 07/26/24 16:44 120 MLS/HR Ondansetron HCl 4 mg Q4HPRN PRN IV 07/23/24 11:15 07/26/24 14:57 4 MG Pantoprazole Sodium 40 mg DAILY IV 07/24/24 10:00 07/26/24 09:14 40 MG Acetaminophen/ Codeine Phosphate 1 tab Q4HP PRN PO 07/23/24 11:15 07/26/24 12:38 1 TAB Acetaminophen/ Codeine Phosphate 1 tab Q4HP PRN PO 07/23/24 11:15 Hold Morphine Sulfate 2 mg Q4HP PRN IV 07/24/24 15:30 Hold 07/25/24 17:12 2 MG Ketorolac Tromethamine 15 mg Q6HPRN PRN IV 07/25/24 20:45 07/30/24 20:44 07/26/24 14:57 15 MG Examination Constitutional: Patient is alert and oriented to time, place and person and does not appear to be in any acute distress Gen - no pallor, no icterus, no cyanosis, no clubbing, no LAD, no edema . Skin - Patients skin is warm and dry. HEENT - normocephalic, atraumatic, moist mucous membranes. Neck - full ROM, no LAD, no JVD Pulmonary - B/L equal breath sounds. no crackles , no wheezing, no stridor. cardiovascular - normal S1,S2 heard. no murmurs heard. GI - soft, moderately tender abdomen status post laparoscopic appendectomy, bowel sounds normoactive Neurological - Bilateral upper extremity strength 5/5, bilateral lower extremity strength 5/5, no facial droop, normal speech, no tremor, no sensory deficiets. laboratory and microbiology Laboratory Tests 07/26/24 04:58 Test 07/26/24 04:58 Range/Units Serum Glucose 97 74-106 mg/dL Microbiology Date/Time Source Procedure Growth Status 07/23/24 10:42 Abdomen Gram Stain - Final Complete 07/23/24 10:42 Anaerobic Culture - Final Bacteroides caccae Complete 07/23/24 10:42 Aerobic Culture - Final Escherichia coli Complete 07/23/24 03:31 Blood Blood Culture - Preliminary NO GROWTH AFTER 72 HOURS OF INCUBATION. Resulted 07/23/24 01:42 Voided Urine Urine Culture - Final Complete Problem List/Assessment/Plan Problem List/Assessment/Plan Acute intractable abdominal pain Acute appendicitis with a suspected perforation SIRS likely due to above UTI likely acute cystitis - CT abdomen pelvis with IV contrast showed acute appendicitis with probable perforation and collection near its tip mesenteric fat stranding and diffuse soft tissue density subcentimeter mesenteric lymph nodes in the right iliac fossa, right simple ovarian cyst - surgery consulted - patient underwent laparoscopic appendectomy and evacuation of right lower quadrant abdominopelvic abscess - on IV antibiotics - BIANCA drain with serosanguineous fluid - pain management - IV fluids - advanced to full liquid diet PUD prophylaxis: Protonix DVT prophylaxis: Enoxaparin Goals of care discussed with the patient for over 27 minutes. Full code Plan discussed with Dr. Grant Plan discussed with: Patient My Orders My Orders Orders - RAUL ALCANTAR RESIDENT Procedure Category Date Status Time Full Liq Diet DIET 07/26/24 Transmitted Lunch Dietary Evaluation Review Comments: Regular diet. Texture as tolerated Expected Outcomes/Goals: Gradual wt loss Date of Service: July 26, 2024 Billing Provider: FLOR GRANT MD Common Visit Codes: [id number] INP/OBS CARE(HIGH) RAUL ALCANTAR RESIDENT July 26, 2024 18:16 FLOR GRANT MD July 27, 2024 05:05
[2024-07-26] MEDS: MELATONIN 5 MG TAB PO SCH (20:59)
[2024-07-26 21:00] VITALS: BP 125/83; PULSE 96; RESP 18; TEMP 98; O2SAT 98
[2024-07-27 05:00] VITALS: BP 127/79; PULSE 99; RESP 18; TEMP 97.8; O2SAT 95
[2024-07-27 09:00] VITALS: BP 109/63; PULSE 85; RESP 18; TEMP 97.8; O2SAT 99
[2024-07-27] MEDS ORDERED: IBUP1TAB5 PO (12:33)
[2024-07-27 13:00] VITALS: BP 121/81; PULSE 96; RESP 18; TEMP 98.2; O2SAT 98
[2024-07-27 14:25] VITALS: BP 121/81; PULSE 96; RESP 18; TEMP 36.8
[2024-07-27] MEDS ORDERED: ACE3T PO (15:12)
[2024-07-27] MEDS ORDERED: METR-344 PO (15:14)
[2024-07-27] MEDS ORDERED: AUG875T PO (15:14)
--- NOTE | 2024-07-27 16:09 | DVHDSRES ---
Discharge Summary Date of Admission Resident Creating Document: RAUL ALCANTAR RESIDENT July 23, 2024 at 05:35 Date of Discharge: July 27, 2024 Admitting Diagnosis Intractable nausea, vomiting and abdominal pain due to acute appendicitis Wounds: status post laparoscopic appendectomy wounds and BIANCA drain Labs/Diagnostic Data: Laboratory Results Test 07/26/24 04:58 07/24/24 09:05 07/23/24 08:14 07/23/24 03:31 White Blood Count 7.5 10^3/uL (4.4-10.8) Red Blood Count 3.84 10^6/uL (4.0-5.20) Hemoglobin 10.9 g/dL (12.2-16.2) Hematocrit 32.8 % (36.0-46.0) Mean Corpuscular Volume 85.5 fL (80.0-100.0) Mean Corpuscular Hemoglobin 28.5 pg (28.0-32.0) Mean Corpuscular Hemoglobin Concent 33.3 g/dL (32.0-36.0) Red Cell Distribution Width 13.5 % (11.8-14.3) Platelet Count 310 10^3/uL (140-450) Mean Platelet Volume 9.4 fL (6.9-10.8) Neutrophils (%) (Auto) 70.9 % (37.0-80.0) Lymphocytes (%) (Auto) 19.0 % (10.0-50.0) Monocytes (%) (Auto) 9.5 % (0.0-12.0) Eosinophils (%) (Auto) 0.3 % (0.0-7.0) Basophils (%) (Auto) 0.3 % (0.0-2.0) Neutrophils # (Auto) 5.3 10 ^3/uL (1.6-8.6) Lymphocytes # (Auto) 1.4 10 ^3/uL (0.4-5.4) Monocytes # (Auto) 0.7 10 ^3/uL (0-1.3) Eosinophils # (Auto) 0 10 ^3/uL (0-0.8) Basophils # (Auto) 0 10 ^3/uL (0-0.2) Nucleated Red Blood Cells 0.0 % Sodium Level 141 mmol/L (136-145) Potassium Level 3.4 mmol/L (3.5-5.1) Chloride Level 110 mmol/L (98-107) Carbon Dioxide Level 23 mmol/L (20-31) Anion Gap 8 (5-15) Blood Urea Nitrogen 11 mg/dL (9-23) Creatinine 0.58 mg/dL (0.550-1.02) Glomerular Filtration Rate Calc 127 mL/min (>90) BUN/Creatinine Ratio 19.0 (10.0-20.0) Serum Glucose 97 mg/dL (74-106) Calcium Level 9.4 mg/dL (8.7-10.4) Total Bilirubin 0.7 mg/dL (0.2-1.0) Aspartate Amino Transferase (AST) < 8 U/L (13-40) Alanine Aminotransferase (ALT) < 9 U/L (7-40) Alkaline Phosphatase 63 U/L (46-116) Total Protein 6.5 g/dL (5.7-8.2) Albumin 4.1 g/dL (3.2-4.8) Prothrombin Time 10.7 sec (9.3-11.8) Prothrombin Time INR 1.01 (0.9-1.15) Activated Partial Thromboplast Time 32.2 SEC (24.5-34.5) Lactic Acid Level 1.7 mmol/L (0.4-2.0) Test 07/23/24 01:42 07/23/24 01:12 Urine Color Light-orange (Yellow) Urine Clarity Clear (Clear) Urine pH 6.0 (5.0-9.0) Urine Specific Shirley 1.047 (1.001-1.035) Urine Protein 1+ (Negative) Urine Ketones 4+ (Negative) Urine Blood 3+ /uL (Negative) Urine Nitrite Negative (Negative) Urine Bilirubin Negative (Negative) Urine Urobilinogen Normal mg/dL (Negative) Urine Leukocyte Esterase 1+ /uL (Negative) Urine RBC 16 /hpf (0 - 4) Urine Microscopic WBC 26 /HPF (0-5) Urine Squamous Epithelial Cells Few /hpf (<5) Urine Bacteria Few /hpf (None Seen) Urine Mucus Few (None Seen) Urine Glucose Trace mg/dL (Normal) Beta HCG, Quantitative 0.1 mIU/mL (1.5-4.2) Other Laboratory Tests 07/26/24 04:58 Brief Hx & Hospital Course: HPI Patient is a 28-year-old female with no significant past medical history presented to the ED with a chief complaint of abdominal pain associated with nausea. Patient reported the pain started about 3 days ago in the left side of her abdomen in the left lumbar and lower quadrant L spread diffusely across the abdomen and at present complains of tenderness and pain in the right lower quadrant, pain is moderate-severe in intensity, constant with intermittent sharp pain, associated with nausea and few episodes of vomiting, yesterday the patient also reported 4 episodes of loose stools. Denied having any fever, chills, dysuria, increased frequency or nocturia. Past medical history: Anemia Past surgical history: None Gynecological history: 2 normal vaginal deliveries Social history: Patient lives with the family and does not drink alcohol, smoke or use any drugs Home medications none Brief hospital course Patient presented to the hospital with a chief complaint of abdominal pain following which CT abdomen pelvis with IV contrast was done which showed acute appendicitis with probable perforation and collection near its tip mesenteric fat stranding and diffuse soft tissue density subcentimeter mesenteric lymph nodes in the right iliac fossa, right simple ovarian cyst. Surgery were consulted and the patient underwent a laparoscopic appendectomy with the evacuation of right lower quadrant abdominopelvic abscess and was started on IV antibiotics. Over the course of the hospital patient was gradually started on diet which she tolerated well with the passing flatus and bowel movement. Four days of IV antibiotics were given and the patient did not have any fever and white blood cell came down to normal range. BIANCA drain having serosanguineous drainage. Patient is discharged in stable condition to home and advised to continue on regular diet and advised to follow up with the surgeon in outpatient clinic in 2 weeks. Narcotic medication as needed for pain control was sent to the patient outside pharmacy. Also oral antibiotics was sent to the patient's pharmacy for the patient to continue as outpatient. Physical examination on the day of discharge: Constitutional: Patient is alert and oriented to time, place and person and does not appear to be in any acute distress Gen - no pallor, no icterus, no cyanosis, no clubbing, no LAD, no edema . Skin - Patients skin is warm and dry. HEENT - normocephalic, atraumatic, moist mucous membranes. Neck - full ROM, no LAD, no JVD Pulmonary - B/L equal breath sounds. no crackles , no wheezing, no stridor. cardiovascular - normal S1,S2 heard. no murmurs heard. GI - soft, mild tender laparoscopic surgical wounds, bowel sounds normoactive; BIANCA drain with minimal serosanguineous fluid Neurological - Bilateral upper extremity strength 5/5, bilateral lower extremity strength 5/5, no facial droop, normal speech, no tremor, no focal deficits Goals of care discussed with the patient for 20 minutes; full code Plan discussed with Consults/Reason for consult Surgery consultation for acute appendicitis Operations or Procedures DATE OF SURGERY: 07/23/2024 PREOPERATIVE DIAGNOSIS: Ruptured appendicitis. POSTOPERATIVE DIAGNOSIS: Ruptured appendicitis. SURGEON: Doni Pelletier MD. RECREATION THERAPY DIRECTOR: Robert Rebollar. ANESTHESIA: General endotracheal, Dr. Rod. PROCEDURE: Laparoscopy, laparoscopic appendectomy, and evacuation of right lower quadrant abdominal pelvic abscess. DESCRIPTION OF PROCEDURE: Under adequate anesthesia with the patient's skin prepped and draped, a supraumbilical incision was made and Veress needle inserted by the hanging drop technique to establish pneumoperitoneum to 15 mmHg pressure by insufflation with carbon dioxide. With the abdomen fully distended, the needle was removed and replaced with a 5 mm trocar port through which a 0-degree viewing laparoscope was inserted. Under direct vision, 5 and 10 mm ports were inserted through the abdominal wall in the midline. Instrumentation was then introduced. Laparoscopy was performed revealing no obvious unexpected pathology on the serosal surfaces visualized. The appendix was a retrocecal appendix affected by acute and chronic appendicitis. There was an abscess surrounding the tip of the appendix, which was perforated. The abscess was cultured. Cultures and sensitivities were submitted of the pus aspirated. There was approximately 25-50 mL of pus that was evacuated at the time of the procedure. The appendix was densely adherent to the lateral posterior abdominal wall. It was then mobilized to the confluence with the cecum at the base of the appendix at the confluence with the cecum. It was cross-clamped and divided with an Endo ADRIANA stapler with vascular jimena. The mesoappendix was similarly divided with a stapling device and the specimen was then removed from the peritoneal cavity by placement in a specimen extraction bag, which was withdrawn through the 10 mm port site in the infraumbilical abdominal wall. Subsequently, the right lower quadrant was profusely irrigated. Irrigant was aspirated. A 10 mm Vance-Dey drain was placed into the vicinity of the appendectomy site and the tip of the drain was placed into the pelvis to the site of the evacuated periappendiceal abscess. The tube was exteriorized to the 5 mm port site in the supraumbilical incision and secured with a 2-0 nylon suture. Following assurance of complete hemostasis at the site of the port sites and at the site of the appendectomy site, the instrumentation was withdrawn. Pneumoperitoneum was evacuated. The fascial defect was closed using 0 Vicryl. Wounds were approximated using Monocryl sutures, Dermabond glue, and Steri-Strips. The patient remained stable throughout the procedure and left the operating room following an accurate needle and sponge counts. oDni Pelletier MD PF/JEFF Condition at Discharge: Good Final Diagnosis/Problems List Acute intractable abdominal pain Acute appendicitis with a suspected perforation Sepsis due to above UTI likely acute cystitis Discharge Disposition: Home Discharge Instruct/Medications Diet: Regular Activity: Light activity Activity comment: advised light activity and avoid lifting anything more than 10 pounds for at least 2 weeks; given work leave note Follow Up/Referral: Follow up with the PCP in one week Follow up in the discharge clinic in one week Follow up in the surgery outpatient clinic in 2 weeks Medications: as per EMR Discharge Statement: "Patient was advised to return to the ER or call 911 if any headaches, dizziness, shortness of breath, chest pain, abdominal pain, bleeding, fevers, or worsening of medical condition. Patient was counseled about treatment plan, medications, possible side effects, patientverbalized understanding. All questions were answered to the best of my ability. This discharge took greater then 30 minutes in planning, reviewing documentation, counseling the patient, and discussing with other team members." ASSESSMENT ASSESSMENT Assessment Acute intractable abdominal pain Acute appendicitis with a suspected perforation Sepsis due to above UTI likely acute cystitis Addendum Addendum Addendum I was physically present for the adrian portions of the service provided to patient by THE RESIDENT. I have reviewed the documentation, discussed the case with resident and agree with the resident's documentation except as noted. Also the patient's clinical case was discussed with the patient's nurse. This medical document was created using an electronic medical record system with computerized dictation system. Although this document has been carefully reviewed, there might still be some phonetic and typographical errors. These areas are purely typographical due to imperfections of the software programs, and do not reflect any compromise in the patient's medical care. Late signature. Date of Service: July 27, 2024 Billing Provider: ELENA VARELA MD Common Visit Codes: 38939-ONV/OBS DISCH DAY >30min Secondary Visit Codes: 31467-ETUNPZLO CARE PLAN 30 MINUTES (20 minutes) RAUL ALCANTAR RESIDENT July 27, 2024 16:09 ELENA VARELA MD Jul 28, 2024 12:43
[2024-07-27 16:44] VITALS: BP 134/85; PULSE 88; RESP 18; TEMP 98.2; O2SAT 100
== END 2024-07-27 17:00 | disposition home or self-care (01) | DRG 710 ==
LOC: ER 00:56 → EEVIPCON 00:56 → OVERFLOW 05:35 → TELE-WESTW 16:13 → TELE-CENTR 07-24 00:53 → CENTRAL 07-24 00:58
PROVIDERS: ADMIT Internal Medicine; ATTEND Emergency Medicine
PROC: 0W9J4ZZ Drainage of Pelvic Cavity, Percutaneous Endoscopic Approach (ICD-10-PCS; 2024-07-23)
PROC: 0DTJ4ZZ Resection of Appendix, Percutaneous Endoscopic Approach (ICD-10-PCS; principal; 2024-07-23 10:20)
DX: A41.9 Sepsis, unspecified organism (principal); K35.33 Acute appendicitis with perforation, localized peritonitis, and gangrene, with abscess; D50.9 Iron deficiency anemia, unspecified; E87.6 Hypokalemia; N83.291 Other ovarian cyst, right side; N30.00 Acute cystitis without hematuria
CPT/HCPCS: 36415; 71045; 74177; 80048; 80053; 81001; 83605; 84702; 85025; 85610; 85730; 86850; 86900; 86901; 87040; 87070; 87075; 87076; 87077; 87086; 87186; 87205; 96365; 96375; 99291; G0378; J1100; J1885; J2250; J2405; J2470; J2543; J2704; J3480; J3490